=== PATIENT | male | born 1960 | race Caucasian/White ===

== ENCOUNTER → 2016-07-04 08:29 | Outpatient (CLI) | payer MEDICAID ==
--- NOTE | ~2016-07-04 | OP ---
PATIENT NAME: MINERVA BEE MEDICAL RECORD: [id number] :60 LOCATION:D.ER ADMISSION DATE: SURGEON: DON JOHNS MD DATE OF OPERATION: 07/04/2016 PROCEDURES: 1. PTCA stent of the LAD. 2. Left heart catheterization. 3. Selective coronary angiography. 4. Left ventriculogram. DESCRIPTION OF PROCEDURE: After informed consent was obtained and after detailed explanation of risks, benefits, as well as alternative therapies, the patient elected to proceed with angiogram and angioplasty. The right femoral area was prepped and draped in normal sterile fashion. The right femoral artery was cannulated via modified Seldinger technique with placement of 6-Croatian sheath. All catheters exchanged through this sheath. FINDINGS: Left ventriculogram was performed in the standard 30-degree WILKINS view reveals good cardiac wall motion throughout all segments. Overall ejection fraction 50%. SELECTIVE CORONARY ANGIOGRAPHY: 1. Left main showed no significant angiographic disease. 2. Left anterior descending has 95% stenosis in the proximal vessel, 80% stenosis times 2 in the mid vessel. 3. The left circumflex is a very large, dominant vessel, 80% in the mid vessel. 4. Right coronary is small, nondominant with diffuse disease throughout. PTCA STENT OF THE LAD: The stent used is 3.5 x 26 Resolute approximately 2.5 x 12 mm Resolute in the mid vessel times 2. The result was 0% residual stenosis. OVERALL IMPRESSION: Successful percutaneous transluminal coronary angioplasty stent of the left anterior descending going from 95% initial stenosis to 0% residual stenosis. PLAN: For PTCA stent of the left circumflex in the near future. TRANSINT:[id number] Voice Confirmation ID: [id number] DOCUMENT ID: [id number] DON JOHNS MD CC: [id number] DICTATION DATE: 07/04/16 1249 OB/GYN: 07/04/162013 [facility] [address] [place] [address]
--- NOTE | ~2016-07-04 | CN ---
PATIENT NAME:MINERVA BEE MEDICAL RECORD: [id number] : 60 LOCATION:[facility] ADMIT DATE: ACCOUNT: [id number] CONSULTING PHYSICIAN: DON JOHNS MD REFERRING PHYSICIAN: MIREYA CARDONA MD DATE OF CONSULTATION: 07/04/2016 DIAGNOSES: 1. Unstable angina. 2. Abnormal ECG. HISTORY OF PRESENT ILLNESS: This is a gentleman with no previous cardiac history, who has been having chest pain and gross fatigue and shortness of breath for 1 week. His EKG has deep T-wave inversions throughout the anterolateral leads. PHYSICAL EXAMINATION: GENERAL APPEARANCE: Well-nourished, well-developed, appears stated age. Level of distress, comfortable. PSYCHIATRIC: Mental status, alert, normal affect. Orientation, oriented to time, place and person. EYES: Lids and conjunctiva, noninjected. No discharge, no pallor. ENT: Lips, teeth, gums, normal dentition. Oropharynx, no cyanosis, no pallor. NECK: Carotid arteries, bilateral normal upstroke, no bruits, no thrills. JUGULAR VEINS: No jugular venous pressure or distention. CERVICAL LYMPH NODES: Nontender, nonenlarged. THYROID: Not enlarged. Nontender. No nodules. LUNGS: Respiratory effort, unlabored. CHEST: Normal curvature. No thoracic deformity. No chest wall tenderness. Percussion, resonant. Auscultation, clear. No wheezes, no rales, no rhonchi. CARDIOVASCULAR: Precordial exam, nondisplaced. No heaves or pericardial thrills. Rate and rhythm, regular. Heart sounds, normal S1, normal S2. No S3, no gallop, no rub. Systolic murmur, not heard. Diastolic murmur, not heard. EXTREMITIES: No cyanosis, no edema. Peripheral pulses, full and equal in all extremities, except as noted. No bruits appreciated. ABDOMEN: Soft, nondistended. Normal aorta. No bruit. Nontender. No masses. Liver, nontender, no hepatomegaly. Spleen, nontender, no splenomegaly. MUSCULOSKELETAL: No joint tenderness. No joint swelling. No erythema. NEUROLOGICAL: Normal gait, normal strength, normal tone. SKIN: Warm and dry. REVIEW OF SYSTEMS: The patient reports easy bruising but reports no swollen glands. The patient reports no fever, no night sweats, no significant weight gain, no significant weight loss. No significant exercise tolerance. The patient reports no dry eyes, no irritation, no vision change. Patient reports no difficulty hearing and no ear pain. Patient reports no frequent nose bleeds or nose and sinus problems. Patient reports on arm pain on exertion. No shortness of breath while lying down. No history of heart murmur. Patient reports no cough, no wheezing or coughing up blood. Patient reports no abdominal pain, no vomiting. Normal appetite. No diarrhea and not vomiting blood. No nausea and no constipation. Patient reports no incontinence. No difficulty urinating. No hematuria. No increased frequency. Patient reports no muscle aches. No weakness, no arthralgias, no back pain. No swelling of the extremities. Patient reports no abnormal mole, no jaundice, no rashes. Reports no loss of consciousness. No weakness and no numbness. No seizures, dizziness, CONSULT REPORT [id number] MINERVA BEE or headaches. The patient reports no depression, no sleep disturbance, feeling safe in a relationship and no alcohol abuse. Patient reports on fatigue. Reports no runny nose or sinus pressure. No itching, no hives, and no frequent sneezing. OVERALL IMPRESSION: Chest pain compatible with angina with a grossly abnormal ECG, most likely has hemodynamically significant coronary artery disease. We will proceed with coronary angiography. Further care depends upon findings of the angiography. TRANSINT:[id number] Voice Confirmation ID: [id number] DOCUMENT ID: [id number] DON JOHNS MD CC: [id number] DICTATION DATE: 07/04/16 1039 TOOLROOM CLERK: 07/04/16 1300 [facility] [address] [place] [address]
--- NOTE | ~2016-07-04 | HEMODYNAMI ---
PATIENT:MINERVA BEE MEDICAL RECORD: [id number] : 60 [id number] ADMISSION DATE: 07/04/16 Generatedon:07/04/201612:50 Patient name: MINERVA BEE Patient #: [id number] SSN: : 1960 Date of study: 07/04/2016 Page: Of Hemodynamic Procedure Report Patient Data Patient Demographics Procedure consent was obtained First Name: MINERVA Gender: Male Last Name: CRISTAL : 1960 [facility] Initial: JOE Age: 56 year(s) Patient #: [id number] Race: Unknown Additional ID: [id number] Contact details [address]: [address] [place] [address] State: [place] City: [place] Zip code: [address] Admission Admission Data Admission Date: 07/04/2016 Admission Time: 8:29 Procedure Procedure Types Cath Procedure Diagnostic Procedure LHC LHC w/Coronaries PCI Procedure Coronary Stent Initial Miscellaneous Procedures Moderate Sedation up to 15 minutes Procedure Description Procedure Date Procedure Date: 07/04/2016 Procedure Start Time: 12:24 Procedure End Time: 12:49 Procedure Staff Name Function Rene Graham MD Performing Physician Bar Wright RT Scrub Berta Lay RN Nurse Saul Medina RT Monitor Procedure Data Cath Procedure Fluoroscopy Diagnostic fluoroscopy Total fluoroscopy Time: 8.5 time: 8.5 min min Diagnostic fluoroscopy Total fluoroscopy dose: dose: 1156 mGy 1156 mGy Contrast Material Contrast Material Type Amount (ml) Isovue 300 190 Entry Location Entry Primary Successful Side Size Upsize Upsize Entry Closure Succes sful Closure Location (Fr) 1 (Fr) 2 (Fr) Remarks Device Remarks Femoral Right 5 Fr 6 Fr Exoseal artery Short Estimated blood loss: 10 ml Diagnostic catheters Device Type Used For End Catheter Placement Cordis 5Fr Pigtail Procedure Catheter (MP) Cordis 5Fr JL 4.0 Procedure Catheter (MP) Cordis 5Fr 3DRC Catheter Procedure (MP) Procedure Complications No complications Procedure Medications Medication Administration Route Dosage Oxygen NC 2 l/min Heparin Flush Bag added to field 2 bags (1000units/500ml NS) Lidocaine 2% added to field 20 Versed I.V. 1 mg Fentanyl I.V. 50 mcg Versed I.V. 1 mg Fentanyl I.V. 50 mcg Versed I.V. 1 mg Fentanyl I.V. 50 mcg Heparin Bolus I.V. 4000 units Integrilin (Bolus I.V. 8.5 ml 2mg/ml) Versed I.V. 1 mg Fentanyl I.V. 50 mcg Hemodynamics Rest Heart Rate: 86 (bpm) Snapshots Pre Cath Intra NCS Post Cath Vital Signs Time Heart Resp SPO2 etCO2 [id number] NIBP (mmHg) Rhythm Pain Sedatio n Rate (ipm) (%) (mmHg) (mmHg) Status Level (bpm) 11:46:51 86 15 97 0 0 147/105(134) NSR 0 (11) 10(A) , No pain 11:51:09 91 14 98 0 0 154/102(131) NSR 0 (11) 10(A) , No pain 11:56:08 92 16 97 0 0 Measuring NSR 0 () 10(A) , No pain 11:56:24 91 16 99 0 0 146/86(105) NSR 0 (11) 10(A) , No pain 12:00:40 89 16 95 0 0 125/88(104) NSR 0 (11) 10(A) , No pain 12:04:52 86 17 95 0 0 122/83(97) NSR 0 (11) 10(A) , No pain 12:09:02 81 17 96 0 0 119/83(102) NSR 0 (11) 10(A) , No pain 12:13:12 81 16 95 0 0 119/87(112) NSR 0 (11) 10(A) , No pain 12:17:26 80 16 96 0 0 125/89(116) NSR 0 (11) 10(A) , No pain 12:21:40 84 16 96 0 0 124/86(94) NSR 0 (11) 10(A) , No pain 12:25:50 83 16 94 0 0 116/88(107) NSR 0 (11) 10(A) , No pain 12:30:49 86 16 96 0 0 Measuring NSR 0 (11) 10(A) , No pain 12:30:53 88 16 98 0 0 114/90(110) NSR 0 (11) 10(A) , No pain 12:35:52 88 10 96 0 0 Measuring NSR 0 (11) 10(A) , No pain 12:35:58 85 16 95 0 0 133/100(122) NSR 0 (11) 10(A) , No pain 12:40:10 86 16 96 0 0 154/109(137) NSR 0 (11) 10(A) , No pain 12:45:09 89 16 98 0 0 Measuring NSR 0 (11) 10(A) , No pain 12:45:25 90 15 96 0 0 154/115(150) NSR 0 (11) 10(A) , No pain 12:49:46 88 10 98 0 0 171/118(165) NSR 0 (11) 10(A) , No pain Medications Time Medication Route Dose Verified Delivered Reason Notes Effectiveness by by 11:38:52 Oxygen NC 2 Rene Berta Per physician l/min Santos Lay RN 11:39:01 Heparin Flush added 2 Rene Rene used for Bag to bags Santos Graham MD procedure (1000units/500ml field NS) 11:39:05 Lidocaine 2% added 20ml Rene Rene used for to vial Santos Graham MD procedure field 12:19:43 Versed I.V. 1 mg Rene Berta for sedation Santos Lay RN 12:19:52 Fentanyl I.V. 50 Rene Berta for sedation mcg Santos Lay RN 12:21:43 Versed I.V. 1 mg Rene Berta for sedation Santos Lay RN 12:21:55 Fentanyl I.V. 50 Rene Berta for sedation mcg Santos Lay RN 12:23:31 Versed I.V. 1 mg Rene Berta for sedation Santos Lay RN 12:23:37 Fentanyl I.V. 50 Rene Berta for sedation mcg Santos Lay RN 12:25:31 Versed I.V. 1 mg Rene Berta for sedation Santos Lay RN 12:25:40 Fentanyl I.V. 50 Rene Berta for sedation mcg Santos Lay RN 12:28:04 Heparin Bolus I.V. 4000 Rene Hampton for dose units Santos Lay RN anticoagulation verified with dr graham 12:31:28 Integrilin I.V. 8.5 Rene Hampton for wasted (Bolus 2mg/ml) ml Santos Lay RN antiplatelet 1.5ML therapy Procedure Log Time Note 11:05:39 Saul Medina RT(R) sent for patient. Start room use. 11:38:46 Time tracking: Regular hours 11:38:50 Plan of Care:Hemodynamics will remain stable., Cardiac rhythm will remain stable., Comfort level will be maintained., Respiratory function will remain adequate., Patient/ family verbilizes understanding of procedure., Procedure tolerated without complication., Recovers from procedure without complications.. 11:38:52 Oxygen 2 l/min NC was administered by Berta Lay RN; Per physician; 11:38:56 Patient received from ED to CCL 1 Alert and oriented. Tansferred to table in Supine position. 11:38:57 Warm blankets applied, and chalino hugger turned on for patient comfort. 11:38:57 Correct patient and procedure confirmed by team. 11:38:59 Signed procedure consent form obtained from patient. 11:39:00 ECG and BP/O2 sat monitors applied to patient. 11:39:01 Heparin Flush Bag (1000units/500ml NS) 2 bags added to field was administered by Rene Graham MD; used for procedure; 11:39:05 Lidocaine 2% 20ml vial added to field was administered by Rene Graham MD; used for procedure; 11:45:37 Vital chart was started 11:45:39 Baseline sample Acquired. 11:45:44 Rhythm: sinus rhythm 11:45:46 Full Disclosure recording started 11:45:52 H&P Date Dictated: 07/04/2016 Emergent; H&P N/A. 11:45:53 Pre-procedure instructions explained to patient. 11:45:54 Pre-op teaching completed and patient verbalized understanding. 11:45:55 Family in waiting room. 11:45:57 Patient NPO since Midnight. 11:46:01 Is the patient allergic to Iodine/contrast media? No. 11:46:06 Is patient on blood thinner?Yes 11:46:08 ACC The patient was administered the following blood thiners within the last 24 hours: ACCPlavix 11:46:14 Patient diabetic? No. 11:46:16 Previous problem with sedation/anesthesia? No ? 11:46:23 Snore? Yes 11:46:24 Sleep apnea? No 11:46:25 Deviated septum? No 11:46:25 Opens mouth fully? Yes 11:46:26 Sticks out tongue? Yes 11:46:28 Airway obstruction? No ? 11:46:31 Dentures? No ? 11:46:36 Pre procedure: right dorsailis pedis pulse 1+ Palpable, but thready & weak; easily obliterated 11:46:39 Modified Damián's test Ulnar > 7 seconds. 11:46:53 Failed Damián's 11:46:58 Patient pain scale 0/10 ?. 11:47:05 IV patent on arrival in right antecubital with 0.9% NaCl at [facility]. 11:47:08 Lab results completed and on chart. 11:47:17 Right groin area was prepped with chlora-prep and draped in sterile fashion 11:47:18 Alarms reviewed by R. N. 11:47:18 Sharps counted by scrub and verified by R.N. 12:19:39 --------ALL STOP TIME OUT------ 12:19:40 Final Timeout: patient, procedure, and site verified with staff and physician. All members of the team are in agreement. 12:19:42 Right groin site verified by team. 12:19:43 Versed 1 mg I.V. was administered by Berta Lay RN; for sedation; 12:19:47 Physical assessment completed. ASA score P 2 - A patient with mild systemic disease as per Rene Graham MD. 12:19:51 Sedation plan: IV Moderate Sedation Versed, Fentanyl 12:19:52 Fentanyl 50 mcg I.V. was administered by Berta Lay RN; for sedation; 12:20:17 Use device set Femoral Dx 12:20:20 Tegaderm 4 x 4 opened to sterile field. 12:20:21 Acist Hand Control opened to sterile field. 12:20:21 Acist Manifold opened to sterile field. 12:20:23 Acist Syringe opened to sterile field. 12:20:23 Bag Decanter opened to sterile field. 12:20:24 Medline Cath Pack opened to sterile field. 12::24 Terumo 5Fr [place] Sheath opened to sterile field. 12::24 St Yunior 260cm J .035 wire opened to sterile field. 12::26 Diagnostic Infinity 5Fr Multipack catheter opened to sterile field. 12::43 Versed 1 mg I.V. was administered by Berta Lay RN; for sedation; 12::55 Fentanyl 50 mcg I.V. was administered by Berta Lay RN; for sedation; 12:: Versed 1 mg I.V. was administered by Berta Lay RN; for sedation; 12::34 Procedure started. 12::37 Fentanyl 50 mcg I.V. was administered by Berta Lay RN; for sedation; 12:: Local anesthetic to right femoral artery with Lidocaine 2% by Rene Graham MD.INITIAL ACCESS ONLY 12::31 A 5 Fr sheath was inserted into the Right Femoral artery 12::39 A Cordis 5Fr Pigtail Catheter (MP) was advanced over the wire and used for Procedure. 12:24:53 LV angiography performed. 12:24:54 LV gram done using WILKINS 12:25:00 EF : 60 % 12:25:05 Injector settings: Ml/sec: 10, Volume: 20, 12:25:07 Catheter removed. 12:25:14 A Cordis 5Fr JL 4.0 Catheter (MP) was advanced over the wire and used for Procedure. 12::31 Versed 1 mg I.V. was administered by Berta Lay RN; for sedation; 12::40 Fentanyl 50 mcg I.V. was administered by Berta Lay RN; for sedation; 12:25:48 Terumo 6Fr [place] Sheath opened to sterile field. 12:25:48 Fonseca Whisper J 300cm 0.014 guide wire opened to sterile field. 12:25:48 Beam. BasixCompak Inflation Kit opened to sterile field. 12:26:09 LCA angiography performed. 12:26:10 Catheter removed. 12:26:38 A Cordis 5Fr 3DRC Catheter (MP) was advanced over the wire and used for Procedure. 12:27:04 RCA angiography performed. 12:27:05 Catheter removed. 12::31 Sheath upsized to a 6 Fr Short. 12:27:39 Cordis 6FR XBLAD 4.0 guide catheter opened to sterile field. 12::46 6 Fr XBLAD 4 guide catheter was inserted over the wire 12:28:04 Heparin Bolus 4000 units I.V. was administered by Berta Lay RN; for anticoagulation; dose verified with dr graham 12:29:40 Whisper wire advanced. 12:30:33 Wire advanced across lesion. 12:: Inflation number: 1 A [place] Sci [place] 3.0 X 20 balloon was prepped and advanced across the Prox LAD, then inflated to 13 ORLIN for 0:10 (min:sec). 12::28 Integrilin (Bolus 2mg/ml) 8.5 ml I.V. was administered by Berta Lay RN; for antiplatelet therapy; wasted 1.5ML 12::56 Multiple inflations made at 13 Atms. 12:32:15 Inflation number: 2 The [place] Sci Scotland 3.0 X 20 balloon was reinflated across the Prox LAD, to 17 ORLIN for 0:10 (min:sec). 12:35:48 Balloon removed over the wire. 12:36:01 Inflation Number: 1 A Medtronic Resolute 2.5 X 12 stent was prepped and advanced across the Dist LAD1. The stent was deployed at 11 ORLIN for 0:10 (min:sec). 12:36:32 Stent catheter was removed intact over wire. 12:37:42 Inflation Number: 1 A Medtronic Resolute 2.5 X 12 stent was prepped and advanced across the Dist LAD. The stent was deployed at 11 ORLIN for 0:10 (min:sec). 12:38:00 Stent catheter was removed intact over wire. 12:40:02 Inflation Number: 3 A Medtronic Resolute 3.5 X 30 stent was prepped and advanced across the Prox LAD. The stent was deployed at 15 ORLIN for 0:10 (min:sec). 12:41:55 Stent catheter was removed intact over wire. 12:41:56 Wire removed. 12:41:58 Guide catheter removed. 12:42:29 Sheath removed intact; hemostasis achieved with Exoseal to the Right Femoral artery. 12:42:57 Cordis 6Fr Exoseal opened to sterile field. 12:42:59 Procedure ended.(Physican Out) 12:47:07 Fluoroscopy time 08.50 minutes. 12:47:11 Fluoroscopy dose: 1156 mGy 12:47:11 Flurop Dose total: 1156 12:47:16 Contrast amount:Isovue 300 190ml. 12:47:18 Sharps counted by scrub and verified by R.N. 12:47:24 Insertion/operative site no bleeding no hematoma. 12:47:28 Post-op/insertion site Right Femoral artery dressed using a 4 x 4 and Tegaderm. 12:47:29 Post Procedure Pulses reassessed and unchanged 12:47:36 Post procedure rhythm: unchanged. 12:47:39 Estimated blood loss: 10 ml 12:47:41 Post procedure instruction explained to patient.Patient verbalizes understanding. 12:47:42 Patient needs reinforcement of post procedure teaching. 12:47:55 Procedure type changed to Cath procedure, Diagnostic procedure, LHC, LHC w/Coronaries, PCI procedure, Coronary Stent Initial, Miscellaneous Procedures, Moderate Sedation up to 15 minutes 12:48:02 Procedure Complication : No complications 12:49:04 Procedure and supply charges have been captured, reviewed, submitted and are correct. 12:49:34 Vital chart was stopped 12:49:36 See physician's report for complete and final results. 12:49:37 Report given to Pre/Post Procedure Room. 12:49:40 Patient transfered to Pre/Post Procedure Room with Stretcher. 12:49:42 Procedure ended. 12:49:42 Full Disclosure recording stopped 12:49:54 End room use (Document Last) Intervention Summary Intervention Notes Time ActionType Lesion and Equipment Action# Pressure Duration Attributes Used 12:31:27 Inflate Prox LAD [place] 1 13 00:10 balloon Sci [place] 3.0 X 20 balloon 12:32:15 Reinflate Prox LAD [place] 2 17 00:10 balloon Sci [place] 3.0 X 20 balloon 12:36:01 Place stent Dist LAD1 Medtronic 1 11 00:10 Resolute 2.5 X 12 stent 12:37:42 Place stent Dist LAD Medtronic 1 11 00:10 Resolute 2.5 X 12 stent 12:40:02 Place stent Prox LAD Medtronic 3 15 00:10 Resolute 3.5 X 30 stent Device Usage Item Name Manufacture Quantity Catalog Number Hospital Part Current Mini mal Lot# / Charge Number Stock Stock Serial# Code Tegaderm 4 3M 1 [id number] [id number] 216324 5 x 4 Acist Hand Acist 1 69360 773583 887084 276091 5 Control Medical Systems Inc Acist Acist 1 10886 263308 152369 688380 5 Manifold Medical Systems Inc Acist Acist 1 31256 777101 916549 438456 20 Syringe Medical Systems Inc Bag Microtek 1 2002S 171637 29699 823195 5 Decanter Medical Inc. Medline Cardinal 1 [id number] 296596 41915 447931 5 Cath Pack Health Terumo 5Fr Terumo 1 [id number] 430269 438285 349542 [address] St Yunior 1 940819 421827 508631 634499 30 260cm J .035 wire Diagnostic Cardinal 1 [id number] 745164 53196 610192 30 Infinity Health 5Fr Multipack catheter Cordis 5Fr Cardinal 1 [id number] 5 Pigtail Health Catheter (MP) Cordis 5Fr Cardinal 1 102797 5 JL 4.0 Health Catheter (MP) Terumo 6Fr Terumo 1 [id number] 572970 835668 899750 40 [place] Sheath Fonseca Fonseca 1 [id number] 012306 050355 782893 5 Whisper J Vascular 300cm 0.014 guide wire Merit Merit 1 [id number] 464680 729728 492679 15 [facility] Medical Inflation Kit Cordis 5Fr Cardinal 1 921556 5 3DRC Health Catheter (MP) Cordis 6FR Cardinal 1 [id number] 418528 703932 478475 3 XBLAD 4.0 Health guide catheter [place] Sci [place] 1 [id number] 102354 465197 835579 1 [employer]str[employer]ias [employer] 3.0 X 20 balloon Medtronic Medtronic 2 [id number] 799904 8 [id number] Resolute [id number] 2.5 X 12 stent Medtronic Medtronic 1 [id number] 842103 966816 6 [id number] Resolute 3.5 X 30 stentt Cordis 6Fr Cardinal 1 EX600 597702 940732 278693 10 [facility] Signature Audit [place] Stage Time Signature Unsigned Intra-Procedure 07/04/2016 Saul Medina 12:50:20 PM RT(R) Signatures Monitor : Saul Medina RT Signature : Date : Time : [place] [id number] [place] [address]
[~2016-07-04 08:29] MED LIST: BAYER CHEWABLE81 MG PO; PLAVIX75 MG PO; PRAVACHOL40 MG PO
[2016-07-04 09:56] LABS: BASOPHILS 0.1 % (0-2); EOSINOPHILS 0.8 % (0-7); HEMATOCRIT 48.6 % (42.0-54.0); HEMOGLOBIN 16.6 g/dL (13.5-17.5); IMMATURE GRANULOCYTES 0.1 % (0-5); LYMPHOCYTES 14.2 % (15-50); MCH 31.9 pg (26.0-34.0); MCHC 34.2 g/dL (31.0-37.0); MCV 93.5 fL (80.0-100.0); MEAN PLATELET VOLUME 10.1 fL (7.4-10.4); MONOCYTES 5.2 % (2-11); NEUTROPHILS 79.6 % (40-80); PLATELET COUNT 339 10x3/uL (130-400); WBC 13.6 10x3/uL (4.8-10.8)
[2016-07-04 10:09] LABS: ALBUMIN 4.1 g/dL (3.4-5.0); ALKALINE PHOSPHATASE 89 U/L (46-116); ALT (SGPT) 26 U/L (10-68); BILIRUBIN - TOTAL 0.27 mg/dL (0.2-1.3); CALC OSMOLALITY 276 mosm/kg (275-300); CALCIUM 9.5 mg/dL (8.5-10.1); CARBON DIOXIDE 28.5 mmol/L (21.0-32.0); CHLORIDE - SERUM 101 mmol/L (98-107); CREATININE - SERUM 1.4 mg/dL (0.6-1.3); GLUCOSE 132 mg/dL (74-106); POTASSIUM - SERUM 4.2 mmol/L (3.5-5.1); PROTEIN - SERUM 8.9 g/dL (6.4-8.2); SODIUM 136 mmol/L (136-145); UREA NITROGEN 22 mg/dL (7-18); eGFR NON AFRICAN AMERICAN 56 mL/min (90-120)
[2016-07-04 10:12] LABS: CREATINE KINASE 153 UL (21-232); TROPONIN-I < 0.017 ng/mL (0.000-0.060)
--- NOTE | 2016-07-04 19:06 | NUR ---
1315-RESTING, SISTER AT SIDE, RIGHT GROIN CDI, NO HEMATOMA OR BLEEDING. 1345-RIGHT GROIN- SMALL HEMATOMA NOTED-MANUAL PRESSURE APPLIED FOR 4 MIN- HEMATOMA BETTER, DENIES NEEDS
--- NOTE | 2016-07-04 19:12 | NUR ---
1700-IV D'C WITH CATH TIP INTACT, WRITTEN AND VERBAL INSTRUCTIONS GIVEN TO PT AND FAMILY, UP TO REST ROOM -VOID, RIGHT GROIN CDI
== END | disposition home or self-care (01) ==
LOC: D.ER 08:29 → D.CATH 08:29 → EDBD 08:29 → EDSTATUS 12:30
PROVIDERS: Emergency Medicine
DX: R07.9 Chest pain, unspecified (principal); R20.9 Unspecified disturbances of skin sensation

== ENCOUNTER 2016-07-05 13:11 | Inpatient (IN) | payer MEDICAID ==
[~2016-07-05] VITALS: Ht 172.7 cm; Wt 91.4 kg
[~2016-07-05 13:11] MED LIST changes: -BAYER CHEWABLE81 MG PO
[2016-07-05 13:48] LABS: BASOPHILS 0.2 % (0-2); EOSINOPHILS 0.7 % (0-7); HEMOGLOBIN 16.4 g/dL (13.5-17.5); IMMATURE GRANULOCYTES 0.2 % (0-5); LYMPHOCYTES 27.8 % (15-50); MCHC 34.2 g/dL (31.0-37.0); MCV 93.6 fL (80.0-100.0); MEAN PLATELET VOLUME 10.1 fL (7.4-10.4); MONOCYTES 7.4 % (2-11); NEUTROPHILS 63.7 % (40-80); PLATELET COUNT 333 10x3/uL (130-400); RBC 5.13 10x6/uL (4.20-6.10); RDW 12.1 % (11.5-14.5)
[2016-07-05 13:55] LABS: WBC 9.6 10x3/uL (4.8-10.8)
[2016-07-05 14:41] LABS: APTT 26.7 SECONDS (22.8-39.4); INR 0.94 (0.85-1.17); PROTIME 12.4 SECONDS (11.6-15.0)
[2016-07-05 14:50] LABS: ALBUMIN 3.9 g/dL (3.4-5.0); ANION GAP 10.4 mmol/L (8-16); BILIRUBIN - TOTAL 0.28 mg/dL (0.2-1.3); CALCIUM 9.3 mg/dL (8.5-10.1); CREATININE - SERUM 1.2 mg/dL (0.6-1.3); POTASSIUM - SERUM 4.4 mmol/L (3.5-5.1); PROTEIN - SERUM 8.1 g/dL (6.4-8.2)
--- NOTE | 2016-07-05 16:52 | NUR ---
PT RECEIVED TO ROOM 210 VIA STRETCHER, PT ORIENTED TO ROOM AND CALL LIGHT, SCD'S PUT ON BILAT. WILL ASSESS PT AND START PLAN OF CARE. ADMINISTERED PROTONIX ORDERED. RT SIDE WEAKNESS/FLACCID NOTED, DROPPING TO RT SIDE OF FACE. PT DENIES ANY NEEDS AT THIS TIME. CALL LIGHT IN REACH, FAMILY AT BEDSIDE, NAD NOTED, WILL CONTINUE TO MONITOR.
[2016-07-05] MEDS ORDERED: BAYER CHEWABLE81 MG PO (16:56)
--- NOTE | 2016-07-05 17:20 | NUR ---
PT TAKEN OFF THE UNIT FOR MRI, NAD NOTED.
[2016-07-05 17:31] VITALS: BP 139/92; BMI 30.4
--- NOTE | 2016-07-05 18:04 | NUR ---
PT TRANSFERED BACK TO ROOM, NAD NOTED, FAMILY AT BEDSIDE.
--- NOTE | 2016-07-05 19:40 | NUR ---
ASSESSMENT COMPLETE, PT A&O. SPEECH SLIGHTLY SLURRED. RIGHT ARM AND LEG SIGNIFICANTLY WEAKER THAN THE LEFT SIDE. IV TO LEFT FOREARM SL, SITE CLEAN AND DRY. RIGHT GROIN DRSG C/D/I FROM HEART CATH DONE YESTERDAY. FAMILY MEMBERS ASKING SEVERAL QUESTIONS AND ALSO ASKING IF PTS PCP CAN BE CHANGED FROM DR TAN TO DR LOVETT, INFORMED THEM THAT CYBER INTEL PLANNER WAS GOING TO BE COMING UP AND SPEAKING WITH THEM IN REGARDS TO SWITHCHING. NO OTHER NEEDS VOICED AT THIS TIME, WILL CONT TO MONITOR.
[2016-07-05 20:00] VITALS: BP 125/92
--- NOTE | 2016-07-05 20:18 | NUR ---
HOUSE SUPP. AT BED SIDE TO TALK WITH FAMILY.
[2016-07-06] VITALS: BP 138/97
--- NOTE | 2016-07-06 03:48 | NUR ---
RESTING ON RIGHT SIDE, RESPERATIONS EVEN, NO S/S DISTRESS NOTED.
[2016-07-06 04:00] VITALS: BP 125/94
[2016-07-06 04:43] LABS: BASOPHILS 0.2 % (0-2); EOSINOPHILS 2.2 % (0-7); HEMATOCRIT 49.6 % (42.0-54.0); HEMOGLOBIN 16.8 g/dL (13.5-17.5); IMMATURE GRANULOCYTES 0.2 % (0-5); LYMPHOCYTES 31.4 % (15-50); MCH 31.9 pg (26.0-34.0); MCHC 33.9 g/dL (31.0-37.0); MCV 94.1 fL (80.0-100.0); MONOCYTES 8.9 % (2-11); NEUTROPHILS 57.1 % (40-80); PLATELET COUNT 346 10x3/uL (130-400); RBC 5.27 10x6/uL (4.20-6.10); RDW 12.2 % (11.5-14.5); WBC 10.4 10x3/uL (4.8-10.8)
[2016-07-06 05:08] LABS: ALBUMIN 3.9 g/dL (3.4-5.0); ANION GAP 11.7 mmol/L (8-16); BILIRUBIN - TOTAL 0.38 mg/dL (0.2-1.3); CALCIUM 9.1 mg/dL (8.5-10.1); CARBON DIOXIDE 29.2 mmol/L (21.0-32.0); CHOL - HDL RATIO 6.2 ratio (2.3-4.9); CREATININE - SERUM 1.2 mg/dL (0.6-1.3); LDL-HDL RATIO 4.6 ratio (1.5-3.5); POTASSIUM - SERUM 3.9 mmol/L (3.5-5.1); PROTEIN - SERUM 8.5 g/dL (6.4-8.2)
--- NOTE | 2016-07-06 05:35 | NUR ---
WILL CONTINUE WITH PLAN OF CARE, CALL LIGHT IN REACH.
--- NOTE | 2016-07-06 07:34 | NUR ---
PT IS RESTING IN BED WITH EYES OPEN. ALERT AND ORIENTED X 3. DENIES ACUTE DISCOMFORT AT THIS TIME. AWAITING CTA CAROTID THIS AM. 20G SALINE LOCK NOTED TO LFA. NO REDNESS OR EDEMA NOTED AT THE INSERTION SITE. TELEMETRY IS INTACT. SR'S ARE UP X 2 IN BED. CALL LIGHT AND BEDSIDE TABLE ARE WITHIN EASY REACH.
[2016-07-06 08:00] VITALS: BP 152/95
--- NOTE | 2016-07-06 08:27 | NUR ---
PT DEPARTING UNIT FOR PROCEDURE AT THIS TIME.
--- NOTE | 2016-07-06 09:00 | NUR ---
PT RETURNED FROM PROCEDURE. BREAKFAST DELIVERED TO ROOM.
--- NOTE | 2016-07-06 09:29 | NUR ---
Rehab Note- Acute Rehab Prescreen order received. The patient has Medicaid and does not have Acute Rehab benefits. Thank you for this referral! Cinda Park RN Clinical Liaison, [facility] Rehab/[facility]
[2016-07-06 09:37] VITALS: Ht 172.7 cm; Wt 91.4 kg
[2016-07-06 12:00] VITALS: BP 144/94
--- NOTE | 2016-07-06 12:01 | NUR ---
PT RESTING IN BED WITH EYES OPEN. NO NEEDS VOICED.
--- NOTE | 2016-07-06 14:47 | NUR ---
DR BONILLA PAGED TO ASK ABOUT RESTARTING ASA AND PLAVIX PER DR TAN.
--- NOTE | 2016-07-06 14:58 | NUR ---
PT RESTING IN BED WITH EYES OPEN. NO ACUTE DISTRESS NOTED.
[2016-07-06 16:01] VITALS: BP 145/92
--- NOTE | 2016-07-06 16:43 | NUR ---
Patient Name: MINERVA BEE Admission Status: ER Accout number: [id number] Admission Date: 07-05-2016 : 1960 Admission Diagnosis:CEREBRAL INFARCTION, UNSPECIFIED Attending: LARA Current LOS: 1 Anticipated DC Date: Planned Disposition: Home with Home Health Primary Insurance: MEDICAID [place] PLANNED EXTERNAL PROVIDER: WAITING ON PT'S CHOICE OF PROVIDER Discharge Planning Comments: * Is the patient Alert and Oriented? Yes 0 * How many steps to enter\exit or inside your home? 2 0 * PCP DR. COOMBS 0 * Pharmacy [facility] 0 * Preadmission Environment Home with Family 0 * ADLs Independent 0 * Equipment None 0 * Other Equipment NO MEDICAL EQUIPMENT PROVIDER PREFERENCE 0 * List name and contact numbers for known caregivers / representatives who currently or will assist patient after discharge: YVAN BAZAN, SISTER, 0 * Community resources currently utilized None 0 * Please name any agencies selected above. NONE 0 * Additional services required to return to the preadmission environment? Yes * Can the patient safely return to the preadmission environment? Yes 0 * Has this patient been hospitalized within the prior 30 days at any hospital? No 0 CM RECEIVED ORDER FOR INPATIENT REHAB PRESCREENING. CM MET WITH PT IN ROOM TO DISCUSS DISCHARGE PLANNING AND NEEDS. PT REPORTS LIVING AT HOME INDEPENDENTLY WITH HIS SISTER. PT HAS NO MEDICAL EQUIPMENT AND NO OUTSIDE SERVICES ASSISTING IN THE HOME. CM DISCUSSED AVAILABILITY OF HOME HEALTH, REHAB SERVICES AND MEDICAL EQUIPMENT. PT WOULD LIKE REHAB IF INSURANCE COVERS IT. PT HAS MEDICAID THAT WILL NOT PAY FOR INPATIENT OR USP REHAB; MEDICAID WILL COVER HOME HEALTH WITH THERAPY. PT WOULD LIKE HOME HEALTH IF THE DOCTOR WILL ORDER IT; REPORTS HIS PRIMARY DOCTOR TO BE DR. COOMBS. PT REPORTS HIS SISTER WILL PICK HIM UP FOR DISCHARGE HOME. CM LEFT PT WITH CHOICE LETTER FOR HOME HEALTH AGENCY AND CM CONTACT INFORMATION. CM TO ARRANGE HOME HEALTH WITH DOCTORS ORDER AND PT'S CHOICE OF PROVIDER. CM TO FOLLOW AND ASSIST NEEDED. Rubber Off: Bismark Davila
--- NOTE | 2016-07-06 17:07 | NUR ---
PT RESTING IN BED VISITING WITH FAMILY. NO NEEDS VOICED.
--- NOTE | 2016-07-06 18:40 | NUR ---
OT NOTE: PT COMPLETED RUE PROM TO FACILITATE RETURN OF FUNCTION. PT COMPLETED RUE POSITIONING TO MAINTAIN JOINT INTEGRITY. PT COMPLETED BED MOB WITH JENI Rajan. PT COMPLETED SIMPLE GROOMING TASK WITH SET UP. THANK YOU, ANGELA CARPENTER/Janki
--- NOTE | 2016-07-06 19:45 | NUR ---
PT RECEIVED LYING IN BED AAOX3 WITH FAMILY AT BEDSIDE. S/L NOTED TO LEFT F/A. DRESSING CDI. HEART RRR. LUNG SOUNDS CLEAR BILATERALLY. BOWEL SOUNDS ACTIVE X4 QUADRENTS. ABDOMEN SOFT NON-TENDER. STIFFNESS/WEAKNESS NOTED TO RUE AND RLE. PT FAMILY AT BEDSIDE AT THIS TIME. DENIES NEEDS. BED LOW. PHONE AND CALL LIGHT IN REACH. SRX2.
[2016-07-06 21:42] VITALS: BP 147/100
--- NOTE | 2016-07-06 21:58 | NUR ---
PT RESTING QUIETLY AT THIS TIME WITH EYES CLOSED. AROUSED EASILY. DENIES NEEDS AT THIS TIME. BED LOW. PHONE AND CALL LIGHT IN REACH. SRX2.
--- NOTE | 2016-07-06 23:37 | NUR ---
PT RESTING QUIETLY AT THIS TIME WITH EYES CLOSED. RESPIRATIONS EVEN, NON-LABORED. NO ACUTE DISTRESS NOTED AT THIS TIME. BED LOW. PHONE AND CALL LIGHT IN REACH. SRX2.
[2016-07-07 00:56] VITALS: BP 124/88
--- NOTE | 2016-07-07 03:02 | NUR ---
PT RESTING QUIETLY AT THIS TIME WITH EYES CLOSED. AROUSED EASILY. DENIES NEEDS AT THIS TIME. BED LOW. PHONE AND CALL LIGHT IN REACH. SRX2.
[2016-07-07 04:00] VITALS: BP 150/94
[2016-07-07 05:40] LABS: BASOPHILS 0.4 % (0-2); EOSINOPHILS 1.8 % (0-7); HEMATOCRIT 48.2 % (42.0-54.0); HEMOGLOBIN 16.2 g/dL (13.5-17.5); IMMATURE GRANULOCYTES 0.4 % (0-5); MCH 31.5 pg (26.0-34.0); MCHC 33.6 g/dL (31.0-37.0); MCV 93.8 fL (80.0-100.0); MEAN PLATELET VOLUME 10.3 fL (7.4-10.4); MONOCYTES 8.7 % (2-11); NEUTROPHILS 68.7 % (40-80); PLATELET COUNT 333 10x3/uL (130-400); RBC 5.14 10x6/uL (4.20-6.10); RDW 12.2 % (11.5-14.5); WBC 12.9 10x3/uL (4.8-10.8)
[2016-07-07 05:57] LABS: ALBUMIN 3.7 g/dL (3.4-5.0); ANION GAP 11.4 mmol/L (8-16); BILIRUBIN - TOTAL 0.45 mg/dL (0.2-1.3); CARBON DIOXIDE 29.5 mmol/L (21.0-32.0); CREATININE - SERUM 1.1 mg/dL (0.6-1.3); POTASSIUM - SERUM 3.9 mmol/L (3.5-5.1); PROTEIN - SERUM 8.4 g/dL (6.4-8.2)
--- NOTE | 2016-07-07 08:02 | NUR ---
AM ROUNDS - PT IS AWAKE AND IN THE BED. PT C/O NOT BEING ABLE TO MOVE HIS RIGHT ARM AND RIGHT LEG. PT STATES THAT THIS STARTED 3-4 DAYS AGO AND GETTING WORSE. POSITIVE PEDAL PULSES. PT ON RA, LEFT FA, SL. MONITOR SHOWINGSR, HR 97. PT HAS NO NEEDS AT THIS TIME. WILL CONTINUE TO MONITOR.
--- NOTE | 2016-07-07 08:42 | NUR ---
TRIED TO CALL ARTURO THE NURSE FROM YESTERDAY TO SEE IF HE TALKED TO DR BONILLA R/T GIVING THE PLAVIX AND ASA THERE IS NO NOTE IN THE SYSTEM THAT SHOWS HE DID. NO ANSWER, WILL TRY AGAIN IN A BIT.
[2016-07-07 09:30] VITALS: BP 172/85
--- NOTE | 2016-07-07 09:49 | NUR ---
843-TRIED TO CALL ARTURO FROM YESTERDAY REGARDING THE ASA AND PLAVIX, NO ANSWER. 899-TRIED AGAIN TO CALL ARTURO, NO ANSWER. 949-DR MAZARIEGOS HERE AND SPOKE TO HIM REGARDING THE ASA AND PLAVIX, ORDER TO BE GIVEN.
[2016-07-07 16:11] VITALS: BP 139/91
[2016-07-07 17:43] VITALS: BP 150/102
--- NOTE | 2016-07-07 17:59 | NUR ---
DENIES ANY NEEDS, WATCHING ANA MONT[place] WITH FAMILY MEMBERS. HAS BEEN UP IN WHEELCHAIR X 1 TODAY TO GET SOME FRESH AIR. WILL CONTINUE TO MONITOR.
--- NOTE | 2016-07-07 19:40 | NUR ---
RECEIVED REPORT, PT SITTING ON SIDE OF BED, FAMILY AT BED SIDE, PLACED BEDSIDE COMMODE IN ROOM, CALL LIGHT IN REACH, WILL CONTINUE CARE OF PLAN
[2016-07-07 20:00] VITALS: BP 144/90
[2016-07-08] VITALS: BP 150/96
--- NOTE | 2016-07-08 00:18 | NUR ---
TV TECHNICIAN AT BED SIDE TO OBTAIN VITALS. WILL CONT PLAN OF CARE.
[2016-07-08 04:00] VITALS: BP 142/94
[2016-07-08 06:21] LABS: BASOPHILS 0.4 % (0-2); EOSINOPHILS 2.9 % (0-7); HEMATOCRIT 47.9 % (42.0-54.0); HEMOGLOBIN 15.9 g/dL (13.5-17.5); IMMATURE GRANULOCYTES 0.3 % (0-5); MCH 31.6 pg (26.0-34.0); MCHC 33.2 g/dL (31.0-37.0); MCV 95.2 fL (80.0-100.0); MEAN PLATELET VOLUME 10.2 fL (7.4-10.4); MONOCYTES 8.4 % (2-11); PLATELET COUNT 308 10x3/uL (130-400); RBC 5.03 10x6/uL (4.20-6.10); RDW 12.3 % (11.5-14.5)
[2016-07-08 06:37] LABS: ALBUMIN 3.7 g/dL (3.4-5.0); ANION GAP 8.8 mmol/L (8-16); BILIRUBIN - TOTAL 0.49 mg/dL (0.2-1.3); CALCIUM 9.1 mg/dL (8.5-10.1); CARBON DIOXIDE 31.5 mmol/L (21.0-32.0); CREATININE - SERUM 1.2 mg/dL (0.6-1.3); POTASSIUM - SERUM 4.3 mmol/L (3.5-5.1); PROTEIN - SERUM 8.2 g/dL (6.4-8.2)
--- NOTE | 2016-07-08 08:02 | NUR ---
0738-AM ROUNDING DONE. SPEECH IS MORE CLEAR THIS AM (EASIER TO UNDERSTAND THAN YESRTERDAY). PATIENT EVEN REPORTS THAT HIS SPEECH IS CLEARER. ON HEART MONITOR SHOWING SR, HR 85. SALINE LOCK SEEN TO LEFT FA. STILL WITH FLACCID TO RIGHT SIDE. WILL PERFORM NEURO CHECKS PAST HIM EATING BREAKFAST. WILL MONITOR.
[2016-07-08 08:15] VITALS: BP 141/88
[2016-07-08 12:08] VITALS: BP 113/89
--- NOTE | 2016-07-08 14:26 | NUR ---
DR TAN HERE TO SEE PATIENT AND DISCUSS WHAT NEEDS HE WILL NEED UPON DISCHARGE IF HE DOES NOT REGAIN USE OF HIS RIGHT ARM AND LEG. YVAN (NIECE) IN ROOM WITH SIGNIFICANT OTHER.
[2016-07-08 15:49] VITALS: BP 124/95
--- NOTE | 2016-07-08 17:48 | NUR ---
DENIES NEEDS AT PRESENT TIME, JUST FINISHED EATING TACO VENEGAS THAT SIGNIFIGANT OTHER BROUGHT HIM. WILL CONTINUE TO MONITOR. INSTRUCTED IN NEED TO USE CALL LIGHT FOR ALL NEEDS, REPLIES THAT HE UNDERSTANDS THIS.
--- NOTE | 2016-07-08 19:55 | NUR ---
PT AWAKE, ALERT, ORIENTED, STILL DEMONSTRATES RIGHT SIDED FLACCIDITY. FAMILY AT BEDSIDE. PT DENIES PAIN, HOWEVER B/P WAS ELEVATED UPON WIRELESS NETWORK ENGINEER ROUNDS. WILL RECHECK AND CALL FOR PRN MEDICATION. CONTINUE TO MONITOR CLOSELY. BED LOW, CALL LIGHT IN REACH, SIDE RAILS X 2, HOB 35 DEGREES.
[2016-07-08 20:00] VITALS: BP 128/84
[2016-07-09] VITALS: BP 138/102
--- NOTE | 2016-07-09 01:42 | NUR ---
PT LYING IN BED ON HIS BACK, EYES CLOSED, RESPIRATIONS EVEN AND UNLABORED. PT EASILY ROUSABLE TO VERBAL STIMULI. B/P HAS BEEN TRANSIENTLY ELEVATED SINCE THE BEGINNING OF SHIFT, HOWEVER, WHEN RECHECKED 10-15 MINUTES LATER HAS IMPROVED WNL. CURRENTLY IT IS 138/102. PT DOES NOT HAVE ANY PRN MEDICATIONS FOR B/P AT THIS TIME. ELECTRIC HOIST OPERATOR, AMANDA TRAN RN, ASSISTING WITH COLLEGE TUTOR NEEDS FOR ER PHYSICIAN ADVISED TO WATCH CLOSELY. NO NEW ORDERS AT THIS TIME.
--- NOTE | 2016-07-09 03:37 | NUR ---
PT LYING IN BED ON BACK, EYES CLOSED, RESPIRATIONS EVEN AND UNLABORED. CONTINUE TO MONITOR CLOSELY. BED LOW, CALL LIGHT IN REACH, SIDE RAILS X 2, HOB 15 DEGREES.
[2016-07-09 04:00] VITALS: BP 156/93
[2016-07-09 05:32] LABS: BASOPHILS 0.2 % (0-2); EOSINOPHILS 4.1 % (0-7); HEMATOCRIT 47.3 % (42.0-54.0); HEMOGLOBIN 15.7 g/dL (13.5-17.5); IMMATURE GRANULOCYTES 0.3 % (0-5); MCH 31.5 pg (26.0-34.0); MCHC 33.2 g/dL (31.0-37.0); MEAN PLATELET VOLUME 10.4 fL (7.4-10.4); MONOCYTES 9.2 % (2-11); NEUTROPHILS 57.2 % (40-80); PLATELET COUNT 297 10x3/uL (130-400); RBC 4.98 10x6/uL (4.20-6.10); RDW 12.4 % (11.5-14.5); WBC 9.3 10x3/uL (4.8-10.8)
[2016-07-09 05:55] LABS: ALBUMIN 3.5 g/dL (3.4-5.0); ANION GAP 11.5 mmol/L (8-16); BILIRUBIN - TOTAL 0.33 mg/dL (0.2-1.3); CALCIUM 9.1 mg/dL (8.5-10.1); CARBON DIOXIDE 30.6 mmol/L (21.0-32.0); CREATININE - SERUM 1.2 mg/dL (0.6-1.3); POTASSIUM - SERUM 4.1 mmol/L (3.5-5.1)
[2016-07-09 07:55] VITALS: BP 145/103
--- NOTE | 2016-07-09 07:57 | NUR ---
AM ROUNDING- RECEIVED REPORT FROM STONE POLISHER MACHINE NURSE NURY ESPOSITO. PT IS CURRENTLY LAYING IN BED ON BACK WITH EYES OPEN RESTING. ON MONITOR SHOWING SR, HR 81. ON ROOM AIR. IV SEEN TO LEFT FOREARM THAT IS CURRENTLY SALINE LOCKED. ON EP, WILL CHECK AM LABS AND TX PER PROTOCOL. NO NEED AT CURRENT TIME. WILL CONTINUE TO MONITOR AND CONTINUE WITH PLAN OF CARE.
[2016-07-09 12:00] VITALS: BP 154/102
--- NOTE | 2016-07-09 14:16 | EC ---
PATIENT:MINERVA BEE DATE OF SERVICE: 07/05/16 SEX: M MEDICAL RECORD: [id number] DATE OF : [birth year] LOCATION:D.M2 D.210 AGE OF PATIENT: 56 ADMISSION DATE: 07/05/16 REFERRING PHYSICIAN: INTERPRETING PHYSICIAN: TRI IBRAHIM M.D. ECHOCARDIOGRAM REPORT ECHO CHARGES 4 ECHO COMPLETE CLINICAL DIAGNOSIS: CVA ECHOCARDIOGRAPHIC MEASUREMENTS (adult normal given) AC root (d.<3.7cm) 4.1 LV Septum d (<1.2 cm> 1.8 Valve Excursion 2.1 LV Septum (systole) 2.5 Left Atria (s.<4.0cm> 3.0 LVPW d(<1.2cm) 1.7 RV (d.<2.3cm) 2.9 LVPW (sytole) 2.6 LV diastole(<5.6CM) 4.5 MV E-F(>70mm/sec) LV systole 1.8 LVOT Diameter 2.1 MV exc.(>10mm) Est.ejection fraction (50-75%) Pericardial Effusion N DOPPLER: LVIT A 76.0 E 55.0 LA RVSP 26.1 LVOT 138 AOP1/2T Asc. Ao 138 RVOT 44.0 RA PA 47.0 AV Gradient Peak 7.6 AV Mean 3.7 AV Area 3.4 MV Gradient Peak 4.2 MV Mean 1.8 MV Area COMMENTS: Folder Stitcher Operator: Gertrude RICHEYOE Printed Circuit Board Panels Developer:Imtiaz Ibrahim TAPE# PACS DATE OF SERVICE: 07/06/2016 REFERRING PHYSICIAN: Sandro Thornton MD. INDICATION: CVA. DESCRIPTION: Left ventricle demonstrates left ventricular hypertrophy. No regional wall motion abnormalities are noted. Estimated ejection fraction is 60%. I do not see any mass or thrombus in the left ventricle apex. Mitral valve is structurally normal. There is trivial regurgitation seen. Left atrium ECHOCARDIOGRAM REPORT [id number] MINERVA BEE is normal size. The aortic valve is trileaflet. There is no stenosis or regurgitation seen. Right ventricle is mildly dilated. Tricuspid valve is structurally normal. There is no regurgitation noted. Right atrium is normal size. There is no pericardial effusion seen. IMPRESSION: 1. Left ventricle hypertrophy with preserved ejection fraction of 60%. There is no evidence of any mass or thrombus in the left ventricle apex. 2. Trivial mitral regurgitation. 3. No evidence of atrial septal defect, ventricular septal defect or patent foramen ovale. TRANSINT:[id number] Voice Confirmation ID: [id number] DOCUMENT ID: [id number] TRI IBRAHIM M.D. at 1416 CC: [id number] DICTATION DATE: 07/06/16 1020 MOTORSPORTS TECHNICIAN: 07/06/16 1105 ADM IN [place] [id number] [place] [id number]
--- NOTE | 2016-07-09 14:26 | NUR ---
1400- PAGED DR. JOHNS REQUESTED BY YEIMY BETANCOURT NP TO SEE ABOUT STATUS ON PT RECEIVING STENTS. WILL AWAIT CALLBACK AND CONTINUE TO MONITOR.
[2016-07-09 16:00] VITALS: BP 146/85
--- NOTE | 2016-07-09 17:41 | NUR ---
OT NOTE: PT EDUCATED ON RUE SROM EXS. PT COMPLETED BED MOB WITH MIN A. PT COMPLETED GROOMING WITH SET UP. THANK YOU, ANGELA DAY/Janki
--- NOTE | 2016-07-09 17:45 | NUR ---
PAGED DR. 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 WILL AWAIT CALLBACK AND CONTINUE TO MONITOR.
--- NOTE | 2016-07-09 17:58 | NUR ---
RECEIVED CALLBACK FROM DR. FLEMING. I ASKED DR. FLEMING ( REQUESTED) IF PT WAS GOING TO [facility] THIS WEEK. DR. FLEMING STATED THAT IF IT WAS UP TO HIM HE WOULD HOLD OFF ON GOING TO [facility] UNTIL PT GETS HEPARIN AND ETC. I INFORMED DR. FLEMING THAT PT IS STILL ON OUTPATIENT SCHEDULE (PER [facility]) FOR SATURDAY. DR. FLEMING STATED THAT IS BECAUSE DR. JOHNS DID NOT KNOW PT HAD CVA. WILL RELAY THIS INFORMATION TO YEIMY BETANCOURT NP.
--- NOTE | 2016-07-09 18:00 | NUR ---
PAGED YEIMY BETANCOURT NP REGARDING TALKING TO DR. FLEMING ABOUT PT GOING FOR STENTS THIS WEEK. WILL AWAIT CALLBACK AND CONTINUE TO MONITOR.
--- NOTE | 2016-07-09 18:05 | NUR ---
RECEIVED CALLBACK FROM YEIMY BETANCOURT NP AND RELAYED TO HER THE INFORMATION THAT DR. FLEMING GAVE ME. WILL CONTINUE TO MONITOR.
[2016-07-09 19:00] VITALS: BP 147/93
[2016-07-10 05:36] LABS: BASOPHILS 0.3 % (0-2); EOSINOPHILS 5.8 % (0-7); HEMATOCRIT 45.7 % (42.0-54.0); HEMOGLOBIN 15.2 g/dL (13.5-17.5); IMMATURE GRANULOCYTES 0.2 % (0-5); LYMPHOCYTES 31.9 % (15-50); MCH 31.5 pg (26.0-34.0); MCHC 33.3 g/dL (31.0-37.0); MCV 94.6 fL (80.0-100.0); MEAN PLATELET VOLUME 10.2 fL (7.4-10.4); MONOCYTES 8.3 % (2-11); NEUTROPHILS 53.5 % (40-80); PLATELET COUNT 288 10x3/uL (130-400); RBC 4.83 10x6/uL (4.20-6.10); RDW 12.3 % (11.5-14.5); WBC 9.4 10x3/uL (4.8-10.8)
[2016-07-10 05:38] VITALS: BP 149/96
[2016-07-10 06:38] LABS: ALBUMIN 3.3 g/dL (3.4-5.0); ANION GAP 12.2 mmol/L (8-16); BILIRUBIN - TOTAL 0.4 mg/dL (0.2-1.3); CALCIUM 8.5 mg/dL (8.5-10.1); CARBON DIOXIDE 28.6 mmol/L (21.0-32.0); CREATININE - SERUM 1.2 mg/dL (0.6-1.3); POTASSIUM - SERUM 3.8 mmol/L (3.5-5.1); PROTEIN - SERUM 7.7 g/dL (6.4-8.2)
--- NOTE | 2016-07-10 07:10 | NUR ---
RECEIVED REPORT. ASSUMED CARE OF PATIENT. CALL LIGHT WITHIN REACH. RESTING IN SUPINE POSITION, ALERT/ORIENTED. DENIES NEEDS. NO DISTRESS.
--- NOTE | 2016-07-10 09:50 | NUR ---
[facility] FROM [facility] AT BEDSIDE INTERVIEWING PATIENT AT THIS TIME.
--- NOTE | 2016-07-10 09:52 | NUR ---
Patient Name: MINERVA BEE Encounter No: [id number] : 1960 Primary Insurance: MEDICAID [place] Anticipated DC Date: TO BE DETERMINED Planned Disposition: Home with Home Health External Planned Provider: TO BE DETERMINED DCP follow-up note: CM CALLED [facility], , LEFT MESSAGE ASKING FOR RETURN CALL SEEKING OPTIONS FOR OUTPATIENT THERAPY FOR PT WITH MEDICAID. CM CALLED [facility], SPOKE TO KEM WHO REPORTS THAT PT WILL NEED TO RECEIVE SERVICES AT [facility] [place] OR [facility] TO MEET HIS NEEDS ADEQUATELY; KEM REPORTS THAT MEDICAID DOES NOT COVER OUTPATIENT THERAPY SERVICES. CM CALLED ODILON OF [facility]; ODILON REPORTED THAT DEPENDING ON PT'S NEEDS, SERVICES ARE APPROXIMATELY $100 PER HOUR PER DISCIPLINE OF THERAPY NEEDED AND THEY ARE NOT COVERED BY MEDICAID. CM SPOKE TO [facility], MEDICAID DOES NOT COVER INPATIENT REHAB NOR OUTPATIENT AT [place]; DEPENDING ON THERAPY NEEDED, COSTS COULD RANGE BETWEEN $300 AND $500 PER VISIT. CM SPOKE TO ALEX OF [facility] WHO REPORTED THAT DEPENDING ON PT'S TYPE OF MEDICAID AND IF PT HAS NOT USED ALL OF HIS DAYS, [facility] MAY BE ABLE TO BILL MEDICAID FOR INPATIENT REHAB SERVICES. CM SPOKE TO PT IN ROOM, DISCUSSED OPTIONS. PT GAVE CONSENT FOR [facility] TO RECEIVE REFERRAL FOR POSSIBLE REHAB SERVICES AT THE INPATIENT FACILITY [facility]. CM PROVIDED REFERRAL TO [facility] WHO WILL EVALUATE PT, CHECK INSURANCE AND MEET WITH PT. CM WAITING [facility] ADMISSION DETERMINATION AND TO CHECK WITH MEDICAID TO SEE IF THEY ARE ABLE TO BILL FOR INPATIENT SERVICES. Bismark Davila, CASE MANAGEMENT
[2016-07-10 12:00] VITALS: BP 157/98
--- NOTE | 2016-07-10 14:22 | NUR ---
Patient Name: MINERVA BEE Encounter No: [id number] : 1960 Primary Insurance: MEDICAID [facility] DC Date: 07-10-2016 Planned Disposition: Inpatient Rehab External Planned Provider: [facility] DCP follow-up note: CM RECEIVED CALL FROM ALEX OF [facility], SCREENING COMPLETED AND INSURANCE HAS AUTHORIZED INPATIENT REHAB AT [facility]. [facility] CAN ACCEPT PT TODAY OR TOMORROW. CM NOTIFIED CATHY BETANCOURT, BEDSIDE NURSE AND PT. PT IN AGREEMENT WITH DISCHARGE PLAN TO [facility]. FOR DISCHARGE TO [facility], FAX DISCHARGE INFORMATION TO [phone]; NURSE REPORT TO BE CALLED TO [facility] AT [phone]. [facility] TO ARRANGE VAN TRANSPORT. Bismark Davila, CASE MANAGEMENT
[2016-07-10 16:28] VITALS: BP 147/94
--- NOTE | 2016-07-10 16:48 | NUR ---
OT NOTE: PERFORMED WT BEARING TASKS THROUGH R UE; PRACTICED BED MOB WITH SPV BUT NOT CONTROLLED; EDUCATED ON SROM EXS; PT DEMONSTRATING INCREASED SCAPULAR MOVEMENT TODAY AND INCREASED BICEP MOVEMENT. CONTINUES WITH NO AROM IN R HAND
--- NOTE | 2016-07-10 16:54 | NUR ---
OT NOTE: PT COMPLETED SITTING EOB WITH CGA. PT COMPLETED RUE SROM EXS. PT COMPLETED SIMPLE GROOMING WITH SET UP. THANK YOU, QUOC DAY
--- NOTE | 2016-07-10 17:44 | NUR ---
SPOKE WITH NURSE CASH SPECIALIST AT [facility] (SANDY) AND SANDY STATED THAT IF WOULD BE OKAY IF IT WAS 8 OR 9 OCLOCK TONIGHT BEFORE PATIENT GOT THERE. EXPLIANED TO SANDY THAT WE ARE WAITING ON THE ANALYTICAL LABORATORY TECHNICIAN TO GIVE DISCHARGE ORDERS. [facility] IS AT BEDSIDE AND NOTIFIED OF HOW LATE THEY WILL ACCEPT THE PATIENT.
[2016-07-10 20:00] VITALS: BP 146/66
--- NOTE | 2016-07-10 20:11 | NUR ---
PT AWAKE, ALERT, ORIENTED, DENIES ANY NEEDS. HAD A SHOWER THIS AFTERNOON, TELEMETRY PLACED BACK ON PT. CONTINUE TO MONITOR CLOSELY. BED LOW, CALL LIGHT IN REACH, SIDE RAILS X 2, HOB 20 DEGREES.
[2016-07-11] VITALS: BP 129/92
--- NOTE | 2016-07-11 01:06 | NUR ---
PT LYING IN BED, EYES CLOSED, RESPIRATIONS EVEN AND UNLABORED, EASILY ROUSABLE TO VERBAL STIMULI. CONTINUE TO MONITOR CLOSELY. BED LOW, CALL LIGHT IN REACH, SIDE RAILS X 2, HOB 15 DEGREES.
[2016-07-11 04:00] VITALS: BP 132/96
--- NOTE | 2016-07-11 07:45 | NUR ---
PT SITTING UP IN BED DENIES NEEDS WILL CONT TO MONITOR
--- NOTE | 2016-07-11 07:57 | NUR ---
FAMILY MEMBERS ARE UPSET STATING THAT "CARDIOLOGY HAS NOT CAME TO SEE PT SINCE ADMISSION." I TRIED TO EXPLAIN TO FAMILY THAT THERE ARE NOTES FROM DR FLEMING AND DR MAZARIEGOS.. PT IS ON SCHEDULE FOR OUTPATIENT STENT TODAY. TALKED TO LURDES WATSON, CURRENTLY ON FLOOR AND EXPLAINED TO HER THE SITUATION. SHE STATES IT WILL BE UP TO DR JOHNS WHETHER OR NOT HE NEEDS TO BE STENTED TODAY BEFORE HE DC HOME TO REHAB. I HAVE LET UNIT SEC KNOW I NEED DR JOHNS AND ALSO LURDES IS GOING TO TRY AND GET A HOLD OF DR JOHNS
[2016-07-11 08:10] VITALS: BP 166/91
[2016-07-11 08:15] LABS: MAGNESIUM - SERUM 2.2 mg/dL (1.8-2.4); PHOSPHOROUS 3.6 mg/dL (2.5-4.9); POTASSIUM - SERUM 4.2 mmol/L (3.5-5.1)
--- NOTE | 2016-07-11 11:10 | NUR ---
PAGED DR SCHMIDT AGAIN REGAURDING PT DC STATUS. DR JOHNS HAS CLEARED HIM AND WILL SEE HIM BACK IN [address] SCHMIDT WAS PAGED EARLIER AROUND 0900, WITH NO RETURN CALL. WILL AWAIT HIS CALL OR FOR HIM TO COME TO HOSPITAL
[2016-07-11 12:17] VITALS: BP 157/91
[2016-07-11] MEDS ORDERED: SYNTHROID125 MCG PO (13:05)
--- NOTE | 2016-07-11 13:36 | NUR ---
PER FRAN/CLINICAL LIASON WITH [facility], [facility]AN TRANSPORTATION ARRANGED AND POLICE OFFICER TIME WILL BE 3:00 PM. PATIENT WILL GO TO RM #[id number]. REPORT TO BE CALLED TO [phone].
--- NOTE | 2016-07-11 14:10 | NUR ---
WENT OVER DC INSTRUCTIONS WITH PT PT VERBALIZES UNDERSTANDING. DC PIV IN LEFT ARM WITH CATH TIP INTACT. CALLED REPORT TO NURSE AT [facility]. PT REQUESTED FOR ME TO CALL HIS ERICKA SANTORO AND NOTIFY HER, I DID. WILL AWAIT PT RIDE TO REHAB
--- NOTE | 2016-07-11 15:57 | NUR ---
PT GEM CARVER WAS SUPPOSED TO BE HERE AT 3:00, STILL NOT HERE. CALLED THE REHAB FACILITY, THEY ARE HAVING A DELAY SAID IT WOULD BE ABOUT 45 MINUTES.
--- NOTE | 2016-07-11 16:21 | NUR ---
REHAB CALLED AND SAID THAT IF HIS WANTED TO BRING HIM SHE COULD, OTHERWISE THEY WOULD HAVE TO SEND LIFENET OUT TO RECEIVE PT. NURSING STAFF DOES NOT FEEL COMFORTABLE GETTING PT INTO WIFES CAR AND HER BEING ALONE WITH HIM ON THE WAY TO REHAB ( CAN NOT TRANSFER PT). PT IS COMPLETELY FLACCID ON R SIDE. REHAB SAID THEY WOULD SEND LIFENET. (DUE TO NOT HAVING A BENZENE WORKER AVAILABLE AT THIS TIME)
--- NOTE | 2016-07-11 17:15 | NUR ---
PT CO "HOT FLASH". CHECKED PT BP 147/96 AROUND PT NORMAL RANGE OF BP DURING PT STAY HERE. EXPLAINED TO PT THAT IT COULD VERY WELL BE THE NEW DX OF HYPOTHYROIDISM AND THE NEW MEDICATION MAKING THE HOT FLASH (ONLY NEW MED CHANGE RECENTLY). PT STATES HE FEELS BETTER NOW.
--- NOTE | 2016-07-11 17:27 | NUR ---
LINUX SERVER ADMINISTRATOR FROM REHAB CAME AND PICKED PT UP WHEELED HIM OUT IN WHEELCHAIR
--- NOTE | 2016-07-11 17:57 | NUR ---
OT NOTE: PT COMPLETED EOB DYNAMIC SITTING BALANCE. PT COMPLETED RUE FM AXS. PT COMPLETED BED TO W/C TRANSFER. THANK YOU, ANGELA DAY/Janki
== END 2016-07-11 17:27 | DRG 66 ==
LOC: D.ER 13:11 → D.M2 16:01 → OBSVTIME 16:01 → D.M2 16:01
PROVIDERS: Emergency Medicine; ADMIT Family Medicine Adult Medicine
DX: I63.512 Cerebral infarction due to unspecified occlusion or stenosis of left middle cerebral artery (principal); I10 Essential (primary) hypertension; I25.10 Atherosclerotic heart disease of native coronary artery without angina pectoris; R40.2143 Coma scale, eyes open, spontaneous, at hospital admission; R40.2363 Coma scale, best motor response, obeys commands, at hospital admission; R40.2253 Coma scale, best verbal response, oriented, at hospital admission; Z95.5 Presence of coronary angioplasty implant and graft; Z87.891 Personal history of nicotine dependence

== ENCOUNTER 2018-06-18 22:59 | Inpatient (IN) | payer MEDICAID ==
[~2018-06-18] VITALS: Ht 172.7 cm; Wt 118.2 kg
--- NOTE | ~2018-06-18 | HEMODYNAMI ---
PATIENT:MINERVA BEE MEDICAL RECORD: [id number] : 60 LOCATION:[place] [address] ADMISSION DATE: 06/19/18 Generatedon:06/20/201814:51 Patient name: MINERVA BEE Patient #: [id number] SSN: : 1960 Date of study: 06/20/2018 Page: Of Hemodynamic Procedure Report Patient Data Patient Demographics Procedure consent was obtained First Name: MINERVA Gender: Male Last Name: CRISTAL : 1960 [facility] Initial: JOE Age: 58 year(s) Patient #: [id number] Race: Unknown Additional ID: [id number] Contact details Address: [address] [place] [address] State: [place] City: [place] Zip code: [address] Past Medical History Allergies: No known allergies Admission Admission Data Admission Date: 06/19/2018 Admission Time: 16:19 Room #: [facility] Procedure Procedure Types Cath Procedure Diagnostic Procedure [facility] LH w/Coronaries Peripheral Cath Diagnostic Procedure 4-Vessel Aortic Arch Angiogram Procedure Description Procedure Date Procedure Date: 06/20/2018 Procedure Start Time: 14:33 Procedure End Time: 14:51 Procedure Staff Name Function Willem Ibrahim MD Performing Physician Queta Samano RT Monitor Amalia Fontanez RN Nurse Queta Samano RT Scrub Procedure Data Cath Procedure Fluoroscopy Diagnostic fluoroscopy Total fluoroscopy Time: 2.3 time: 2.3 min min Diagnostic fluoroscopy Total fluoroscopy dose: 305 dose: 305 mGy mGy Contrast Material Contrast Material Type Amount (ml) Isovue 370 89 Entry Location Entry Primary Successful Side Size Upsize Upsize Entry Closure Succes sful Closure Location (Fr) 1 (Fr) 2 (Fr) Remarks Device Remarks Femoral Right 5 Fr Exoseal artery Estimated blood loss: 5 ml Diagnostic catheters Device Type Used For End Catheter Placement MULTIPACK JL 4.0 5Fr Left Coronary catheter Angiography MULTIPACK 3DRC 5Fr Right Coronary catheter Angiography MULTIPACK Pigtail 5 Fr LV Angiography catheter MULTIPACK Pigtail 5 Fr Ascending catheter aortogram Procedure Complications No complications Procedure Medications Medication Administration Route Dosage Oxygen etCO2 Nasal cannula 2 l/min Lidocaine 2% added to field 20 Heparin Flush Bag added to field 2 bags (1000units/500ml NS) 0.9% NaCl I.V. 100 ml/hr Versed I.V. 1 mg Fentanyl I.V. 50 mcg Versed I.V. 1 mg Fentanyl I.V. 50 mcg Versed I.V. 1 mg Fentanyl I.V. 50 mcg Benadryl I.V. 50 mg Hemodynamics Rest Heart Rate: 48 (bpm) Pressure Samples Time Site Value (mmHg) Purpose Heart Use Rate(bpm) 14:41 LV 129/15,26 EDP 91 Gradients Valve Time Site Site Mean SEP/DFP Peak To Heart Use 1 2 (mmHg) (sec/min) Peak Rate (mmHg) (bpm) Aortic 14:41 LV AO 35 Snapshots Pre Cath Intra NCS Post Cath Vital Signs Time Heart Resp SPO2 etCO2 NIBP (mmHg) Rhythm Pain Sedation Rate (ipm) (%) (mmHg) Status Level (bpm) 14:19:54 77 13 94 34.3 148/95(112) NSR 0 (11) 10(A) , No pain 14:24:07 81 14 94 14.9 157/93(103) NSR 0 (11) 10(A) , No pain 14:28:13 86 11 93 37.2 131/96(129) NSR 0 (11) 10(A) , No pain 14:32:13 83 14 93 34.3 123/104(120) NSR 0 (11) 10(A) , No pain 14:36:16 78 12 94 32.1 138/108(122) NSR 0 (11) 9(A) , No pain 14:40:22 88 11 93 35 134/104(119) NSR 0 (11) 9(A) , No pain 14:44:30 86 13 93 35 119/86(103) NSR 0 (11) 10(A) , No pain 14:49:29 89 16 41 Measuring NSR 0 (11) 10(A) , No pain 14:50:43 83 11 20.8 Out of range NSR 0 (11) 10(A) , No pain Medications Time Medication Route Dose Verified Delivered Reason Notes Eff ectiveness by by 14:29:34 Oxygen etCO2 2 Willem Buffie used for Nasal l/min Patrice Fontanez RN procedure cannula 14:29:40 Lidocaine 2% added 20ml Willem Willem for local to vial Patrice Ibrahim MD anesthetic field 14:29:48 Heparin Flush added 2 Willem Willem used for Bag to bags Patrice Ibrahim MD procedure (1000units/500ml field NS) 14:30:03 0.9% NaCl I.V. 100 Willem Buffie Per ml/hr Patrice Fontanez RN physician 14:30:18 Benadryl I.V. 50 mg Willem Buffie used for Patrice Fontanez RN procedure 14:32:10 Versed I.V. 1 mg Willem Buffie for Patrice Fontanez RN sedation 14:32:15 Fentanyl I.V. 50 Willem Buffie for mcg Patrice Fontanez RN sedation 14:35:54 Versed I.V. 1 mg Willem Buffie for Patrice Fontanez RN sedation 14:35:57 Fentanyl I.V. 50 Willem Buffie for mcg Patrice Fontanez RN sedation 14:39:35 Versed I.V. 1 mg Willem Buffie for Patrice Fontanez RN sedation 14:39:40 Fentanyl I.V. 50 Willem Buffie for mcg Patrice Fontanez RN sedation Procedure Log Time Note 14:06:54 Time tracking: Regular hours (M-F 7:00 - 5:00) 14:06:57 Plan of Care:Hemodynamics will remain stable., Cardiac rhythm will remain stable., Comfort level will be maintained., Respiratory function will remain adequate., Patient/ family verbilizes understanding of procedure., Procedure tolerated without complication., Recovers from procedure without complications.. 14:06:59 Amalia Fontanez RN sent for patient. Start room use. 14:10:36 Patient received from Med/Surg to CCL 3 Alert and oriented. Tansferred to table in Supine position. 14:10:37 Warm blankets applied, and chalino hugger turned on for patient comfort. 14:10:37 Correct patient and procedure confirmed by team. 14:10:38 Signed procedure consent form obtained from patient. 14:10:39 ECG and BP/O2 sat monitors applied to patient. 14:10:41 Full Disclosure recording started 14:18:54 Vital chart was started 14:18:57 Rhythm: sinus rhythm 14:19:14 H&P Date Dictated: 06/19/2018 Within 30 days and on chart.. 14:19:15 Pre-procedure instructions explained to patient. 14:19:16 Pre-op teaching completed and patient verbalized understanding. 14:19:17 Family in waiting room. 14:19:23 Patient NPO since Midnight. 14:19:28 Patient allergic to No known allergies 14:19:30 Is the patient allergic to Iodine/contrast media? No. 14:19:32 Is patient on blood thinner?Yes 14:19:52 PLAVIX LAST DOSE 06/18/18 14:19:54 Patient diabetic? No. 14:19:58 Previous problem with sedation/anesthesia? No ? 14:19:59 Snore? Yes 14:20:00 Sleep apnea? No 14:20:01 Deviated septum? No 14:20:02 Opens mouth fully? Yes 14:20:02 Sticks out tongue? Yes 14:20:09 Airway obstruction? No ? 14:20:14 Dentures? No ? 14:20:19 Pre procedure: right dorsailis pedis pulse 2+ Normal; easily identifiable; not easily obliterated 14:20:22 Patient pain scale 0/10 ?. 14:20:47 IV patent on arrival in left forearm with 0.9% NaCl at [facility]. 14:20:49 Lab results completed and on chart. 14:20:52 Right groin area was prepped with chlora-prep and draped in sterile fashion 14:20:53 Alarms reviewed by R. N. 14:20:53 Sharps counted by scrub and verified by R.N. 14:20:56 Use device set Femoral Dx 14:20:57 ACIST Syringe (70236) opened to sterile field. 14:20:58 Bag Decanter (2002S) opened to sterile field. 14:20:58 Medline Cath Pack ([id number]) opened to sterile field. 14:20:59 DIAGNOSTIC WIRE .035 260cm J wire (320850) opened to sterile field. 14:21:00 ACIST Hand Control (13154) opened to sterile field. 14:21:00 ACIST Manifold (38648) opened to sterile field. 14:21:01 DIAGNOSTIC Multipack 5Fr catheter set ([id number]) opened to sterile field. 14:21:02 Tegaderm 4 x 4 (1626W) opened to sterile field. 14:21:02 SHEATH 5FR Anderson (JVE081) opened to sterile field. 14:21:42 IV Extension Set opened to sterile field. 14:29:34 Oxygen 2 l/min etCO2 Nasal cannula was administered by Amalia Fontanez RN; used for procedure; 14:29:40 Lidocaine 2% 20ml vial added to field was administered by Willem Ibrahim MD; for local anesthetic; 14:29:48 Heparin Flush Bag (1000units/500ml NS) 2 bags added to field was administered by Willem Ibrahim MD; used for procedure; 14:30:03 0.9% NaCl 100 ml/hr I.V. was administered by Amalia Fontanez RN; Per physician; 14:30:18 Benadryl 50 mg I.V. was administered by Amalia Fontanez RN; used for procedure; 14:31:54 Final Timeout: patient, procedure, and site verified with staff and physician. All members of the team are in agreement. 14:31:55 Right groin site verified by team. 14:31:59 Maximum allowable Isovue 370 dose 300ml. Physician notified. (300ml for normal creatinines. For patients with creatinine of 1.7 or higher multiply weight(kg) x 5 divided by creatinine.) 14:32:02 Fire Safety Assessment: A--An alcohol-based skin anteseptic being used preoperatively., C--Open oxygen or nitrous oxide is being used., D--An ESU, laser, or fiber-optic light is being used. 14:32:05 Physical assessment completed. ASA score P 2 - A patient with mild systemic disease as per Willem Ibrahim MD. 14:32:08 Sedation plan: IV Moderate Sedation Medication:Versed, Fentanyl 14:32:10 Versed 1 mg I.V. was administered by Amalia Fontanez RN; for sedation; 14:32:14 Procedure started. 14:32:15 Fentanyl 50 mcg I.V. was administered by Amalia Fontanez RN; for sedation; 14:32:24 Baseline sample Acquired. 14:33:01 Local anesthetic to right femoral artery with Lidocaine 2% by Willem Ibrahim MD.INITIAL ACCESS ONLY 14:33:04 Zero performed for pressure channel P1 14:34:41 A 5 Fr sheath was inserted into the Right Femoral artery 14:35:34 A MULTIPACK JL 4.0 5Fr catheter was advanced over the wire and used for Left Coronary Angiography. 14:35:54 Versed 1 mg I.V. was administered by Amalia Fontanez RN; for sedation; 14:35:57 Fentanyl 50 mcg I.V. was administered by Amalia Fontanez RN; for sedation; 14:37:48 Catheter removed. 14:37:53 A MULTIPACK 3DRC 5Fr catheter was advanced over the wire and used for Right Coronary Angiography. 14:39:35 Versed 1 mg I.V. was administered by Amalia Fontanez RN; for sedation; 14:39:40 Fentanyl 50 mcg I.V. was administered by Amalia Fontanez RN; for sedation; 14:40:26 Catheter removed. 14:40:44 A MULTIPACK Pigtail 5 Fr catheter was advanced over the wire and used for LV Angiography. 14:41:25 LV gram done using WILKINS 14:41:26 LV hemodynamics recorded. 14:41:29 Injector settings: Ml/sec: 10, Volume: 20, 14:41:36 EF : 60 % 14:42:27 A MULTIPACK Pigtail 5 Fr catheter was advanced over the wire and used for Ascending aortogram. 14:42:48 Catheter removed. 14:44:20 Sheath removed intact; hemostasis achieved with Exoseal to the Right Femoral artery. 14:44:23 Procedure ended.(Physican Out) 14:44:42 Fluoroscopy time 02.30 minutes. 14:44:47 Flurop Dose total: 305 14:44:47 Fluoroscopy dose: 305 mGy 14:44:50 Contrast amount:Isovue 370 89ml. 14:44:52 Sharps counted by scrub and verified by R.N. 14:44:53 Insertion/operative site no bleeding no hematoma. 14:44:55 Post-op/insertion site Right Femoral artery dressed using a 4 x 4 and Tegaderm. 14:44:58 Post right femoral artery:stable, clean and dry 14:45:00 Post Procedure Pulses reassessed and unchanged 14:45:04 Post-procedure physical assessment completed. ASA score P 2 - A patient with mild systemic disease as per Willem Ibrahim MD. 14:45:07 Post procedure rhythm: unchanged. 14:45:10 Estimated blood loss: 5 ml 14:45:12 Post procedure instruction explained to patient.Patient verbalizes understanding. 14:45:14 Patient needs reinforcement of post procedure teaching. 14:45:30 Procedure type changed to Cath procedure, Diagnostic procedure, LHC, LHC w/Coronaries, Peripheral Cath Diagnostic Procedure, 4-Vessel, Aortic Arch Angiogram 14:45:39 Procedure Complication : No complications 14:45:41 See physician's report for complete and final results. 14:46:09 EXOSEAL 5Fr (EX500) opened to sterile field. 14:46:58 Procedure and supply charges have been captured, reviewed, submitted and are correct. 14:50:52 Vital chart was stopped 14:50:54 Report given to PCU. 14:50:58 Patient transfered to PCU with Bed. 14:51:05 Procedure ended. 14:51:05 Full Disclosure recording stopped 14:51:10 End room use (Document Last) Device Usage Item Name Manufacture Quantity Catalog Hospital Part Current Minimal L ot# / Number Charge Number Stock Stock Serial# Code ACIST Acist 1 48688 347254 483005 586296 20 Syringe Medical (19222) Systems Inc Bag Microtek 1 2001S 552979 09112 533412 5 Decanter Medical Inc. () Medline Medline 1 [id number] 132380 29776 953953 5 Cath Pack ([id number]) DIAGNOSTIC St Yunior 1 915955 944101 532196 244078 30 WIRE .035 260cm J wire (161801) ACIST Hand Acist 1 25599 271226 357296 729888 5 Control Medical (69401) Systems Inc ACIST Acist 1 79853 614199 605346 517120 5 Manifold Medical (91045) Systems Inc DIAGNOSTIC Cardinal 1 [id number] 937391 79295 447901 30 Multipack Health 5Fr catheter set (VG0285) Tegaderm 4 3M 1 1626W 507986 929729 904950 5 x 4 (1626W) SHEATH 5FR Terumo 1 RZD756 003583 087063 375967 5 Anderson (KCC173) IV Hospira 1 84253-00 364503 04579 489342 5 Extension Set MULTIPACK Cardinal 1 870617 5 JL 4.0 5Fr Health catheter MULTIPACK Cardinal 1 511033 5 3DRC 5Fr Health catheter MULTIPACK Cardinal 1 179369 5 Pigtail 5 Health Fr catheter EXOSEAL 5Fr Cardinal 1 EX500 370187 192414 651420 10 (EX500) Health Signature Audit [place] Stage Time Signature Unsigned Intra-Procedure 06/20/2018 Queta 2:51:28 PM Counts RT(R) Signatures Monitor : Queta Signature : Counts RT Date : Time : [address] [address]
[~2018-06-18 22:59] MED LIST changes: +BAYER CHEWABLE81 MG PO; +SYNTHROID125 MCG PO
[2018-06-18] MEDS ORDERED: COREG6.25 MG PO (23:16)
[2018-06-18] MEDS ORDERED: LISINOPRIL20 MG PO (23:16)
[2018-06-18] MEDS ORDERED: NORVASC5 MG PO (23:16)
[2018-06-18] MEDS ORDERED: LIPITOR80 MG PO (23:17)
[2018-06-18 23:52] LABS: BASOPHILS 0.5 % (0-2); EOSINOPHILS 6.4 % (0-7); HEMOGLOBIN 16.5 g/dL (13.5-17.5); IMMATURE GRANULOCYTES 0.1 % (0-5); LYMPHOCYTES 28.8 % (15-50); MCH 32.4 pg (26.0-34.0); MCHC 35.9 g/dL (31.0-37.0); MCV 90.2 fL (80.0-100.0); MEAN PLATELET VOLUME 10.6 fL (7.4-10.4); MONOCYTES 9.7 % (2-11); NEUTROPHILS 54.5 % (40-80); PLATELET COUNT 246 10x3/uL (130-400); RDW 12.1 % (11.5-14.5); WBC 9.8 10x3/uL (4.8-10.8)
[2018-06-19 00:06] LABS: ALBUMIN 4.2 g/dL (3.4-5.0); ANION GAP 12.9 mmol/L (8-16); BILIRUBIN - TOTAL 0.3 mg/dL (0.2-1.3); CALCIUM 8.9 mg/dL (8.5-10.1); CREATININE - SERUM 1.4 mg/dL (0.6-1.3); POTASSIUM - SERUM 3.9 mmol/L (3.5-5.1); PROTEIN - SERUM 8.5 g/dL (6.4-8.2)
[2018-06-19 01:52] VITALS: BP 144/94; Ht 172.7 cm; Wt 118.2 kg
[2018-06-19 04:00] VITALS: BP 130/81
[2018-06-19 08:35] VITALS: BP 145/94
[2018-06-19 12:37] VITALS: BP 130/90
[2018-06-19 17:05] LABS: PLT FUNCT.(P2Y12) PLAVIX 186 PRU (194-418)
[2018-06-19 17:47] VITALS: BP 142/90
[2018-06-19 20:00] VITALS: BP 126/78
[2018-06-20 04:00] VITALS: BP 121/79
[2018-06-20 06:35] LABS: BASOPHILS 0.4 % (0-2); EOSINOPHILS 4.6 % (0-7); HEMATOCRIT 43.7 % (42.0-54.0); HEMOGLOBIN 15.2 g/dL (13.5-17.5); IMMATURE GRANULOCYTES 0.1 % (0-5); LYMPHOCYTES 34.8 % (15-50); MCH 31.7 pg (26.0-34.0); MCHC 34.8 g/dL (31.0-37.0); MEAN PLATELET VOLUME 10.7 fL (7.4-10.4); MONOCYTES 11.2 % (2-11); NEUTROPHILS 48.9 % (40-80); PLATELET COUNT 228 10x3/uL (130-400); RDW 12.4 % (11.5-14.5); WBC 8.2 10x3/uL (4.8-10.8)
[2018-06-20 06:40] LABS: ALBUMIN 3.8 g/dL (3.4-5.0); ANION GAP 11.7 mmol/L (8-16); BILIRUBIN - TOTAL 0.49 mg/dL (0.2-1.3); CALCIUM 8.7 mg/dL (8.5-10.1); CARBON DIOXIDE 29.5 mmol/L (21.0-32.0); CREATININE - SERUM 1.4 mg/dL (0.6-1.3); POTASSIUM - SERUM 4.2 mmol/L (3.5-5.1); PROTEIN - SERUM 7.3 g/dL (6.4-8.2)
[2018-06-20 07:59] VITALS: BP 206/183
[2018-06-20 09:30] VITALS: BP 116/74
[2018-06-20 12:59] VITALS: BP 115/65
[2018-06-20 15:24] VITALS: BP 106/57
[2018-06-20 20:58] VITALS: BP 99/44
[2018-06-21 00:56] VITALS: BP 117/70
[2018-06-21 04:00] VITALS: BP 111/84
[2018-06-21 04:58] LABS: BASOPHILS 0.3 % (0-2); EOSINOPHILS 3.4 % (0-7); HEMATOCRIT 43.4 % (42.0-54.0); HEMOGLOBIN 15.2 g/dL (13.5-17.5); IMMATURE GRANULOCYTES 0.3 % (0-5); LYMPHOCYTES 27.3 % (15-50); MCH 31.9 pg (26.0-34.0); MEAN PLATELET VOLUME 10.6 fL (7.4-10.4); MONOCYTES 9.3 % (2-11); NEUTROPHILS 59.4 % (40-80); PLATELET COUNT 212 10x3/uL (130-400); RBC 4.77 10x6/uL (4.20-6.10); RDW 12.4 % (11.5-14.5)
[2018-06-21 04:59] LABS: WBC 10.4 10x3/uL (4.8-10.8)
[2018-06-21 05:19] LABS: ALBUMIN 3.5 g/dL (3.4-5.0); ANION GAP 12.4 mmol/L (8-16); BILIRUBIN - TOTAL 0.43 mg/dL (0.2-1.3); CALCIUM 8.2 mg/dL (8.5-10.1); CARBON DIOXIDE 26.4 mmol/L (21.0-32.0); CREATININE - SERUM 1.2 mg/dL (0.6-1.3); POTASSIUM - SERUM 3.8 mmol/L (3.5-5.1); PROTEIN - SERUM 7.1 g/dL (6.4-8.2)
[2018-06-21 09:12] VITALS: BP 133/88
[2018-06-21 12:54] VITALS: BP 111/77
--- NOTE | 2018-06-21 16:53 | MORECARE ---
CASE MANAGEMENT DISCHARGE SUMMARY PATIENT: MINERVA BEE UNIT: [id number] ADM DATE: 06/19/18 AGE: 58 : 60 SEX: M ROOM/BED: D.2114 AUTHOR: CHRISTIANA GANT PHYSICIAN: REFERRING PHYSICIAN: ISIDRA COOMBS DO DATE OF SERVICE: 06/21/18 Discharge Plan Patient Name[facility] MIN[facility]A BEE [facility] [facility] 1960 Planned Disposition: Home Anticipated Discharge Date: 06/21/18 Discharge Date: 06/21/2018 Expected LOS: 2 Initial Reviewer: [email or web address] Initial Review Date: 06/19/2018 Generated: 06/21/18 5:53 pm Patient Name: MINERVA BEE Page 16439 at 1653 All edits/amendments must be made on the electronic document DICTATION DATE: 06/21/181651 PRIVATE DUTY RN: SAV 06/21/181651 RPT#: [id number] DC DATE:06/21/18 STATUS: DIS IN [facility] [address] [place] [address] END OF REPORT
--- NOTE | 2018-06-21 17:00 | MORECARE ---
CASE MANAGEMENT DISCHARGE SUMMARY PATIENT: MINERVA BEE UNIT: [id number] ADM DATE: 06/19/18 AGE: 58 : 60 SEX: M ROOM/BED: D.2114 AUTHOR: CHRISTIANA GANT PHYSICIAN: REFERRING PHYSICIAN: ISIDRA COOMBS DO DATE OF SERVICE: 06/21/18 Discharge Plan Patient Name: MINERVA BEE Facility: [facility]:[place] : 1960 Planned Disposition: Home Anticipated Discharge Date: 06/21/18 Discharge Date: 06/21/2018 Expected LOS: 2 Initial Reviewer: [email or web address] Initial Review Date: 06/19/2018 Generated: 06/21/18 6:00 pm DCPIA - Discharge Planning Initial Assessment Updated by [email or web address]: Theodora Mcqueen on 06/21/18 4:59 pm * Is the patient Alert and Oriented? Yes * How many steps to enter\\exit or inside your home? 2 W/ RAIL * PCP DR COOMBS * Pharmacy [facility] [place] [place] * Preadmission Environment Home with Family * ADLs Partial Dependent * Partial ADLs (Assistance needed) Dressing * Equipment Cane * Other Equipment DENIES ANY OTHER DME UTILIZES HIS SISTER'S ROLL AROUND" CHAIR SOME TIMES * List name and contact numbers for known caregivers / representatives who currently or will assist patient after discharge: YVAN VILLEGAS- [phone] * Verbal permission to speak to the caregivers and representatives has been obtained from the patient. No * Community resources currently utilized Meals on Wheels * Please name any agencies selected above. MOM'S MEALS ARE DELIVERED EVERY 2 WEEKS * Additional services required to return to the preadmission environment? No * Can the patient safely return to the preadmission environment? Yes * Has this patient been hospitalized within the prior 30 days at any hospital? No Last DP export: 06/21/18 3:53 p Patient Name: MINERVA BEE Page 25456 at 1700 All edits/amendments must be made on the electronic document DICTATION DATE: 06/21/181658 CONTINUOUS IMPROVEMENT ENGINEER: SAV 06/21/181658 RPT#: [id number] DC DATE:06/21/18 STATUS: DIS IN [facility] [address] [place] [address] END OF REPORT
--- NOTE | 2018-06-21 17:20 | MORECARE ---
CASE MANAGEMENT DISCHARGE SUMMARY PATIENT: MINERVA BEE UNIT: [id number] ADM DATE: 06/19/18 AGE: 58 : 60 SEX: M ROOM/BED: D.9461 AUTHOR: ALFREDA,DOC PHYSICIAN: REFERRING PHYSICIAN: ISIDRA COOMBS DO DATE OF SERVICE: 06/21/18 Discharge Plan Patient Name: MINERVA BEE [facility] [facility] 1960 Planned Disposition: Home Anticipated Discharge Date: 06/21/18 Discharge Date: 06/21/2018 Expected LOS: 2 Initial Reviewer: [email or web address] Initial Review Date: 06/19/2018 Generated: 06/21/18 6:20 pm Comments DCP- Discharge Planning Updated by [email or web address]: Theodora Mcqueen on 06/21/18 4:[address] Patient Name: MINERVA BEE Admission Status: ER Accout number: [id number] Admission Date: 06-19-2018 : 1960 Admission Diagnosis: Attending: ISIDRA COOMBS Current LOS: 2 Anticipated DC Date: 06-21-2018 Planned Disposition: Home Primary Insurance: MEDICAID [place] Discharge Planning Comments: LATE ENTRY 1215 CM MET WITH THE PATIENT IN HIS ROOM. HE WAS ALERT AND ORIENTED X4. STATES HE IS PLANNING TO RETURN TO HOME AT DISCHARGE TODAY. CM EXPLAINED ROLE AND DISCUSSED OPTIONS FOR CARE AT DISCHARGE. PATIENT DENIES ANY NEEDS. STATES HE LIVES WITH HIS SISTER WHO HELPS HIM IF NEEDED. HE RECEIVES MOM'S MEALS. THEY ARE DELIVERED [id number]. HE JUST RECEIVED A SHIPMENT. DENIES ANY HOME HEALTH OR COMMUNITY SERVICES. PCP- [facility] COOMBS [facility]- [facility]- [facility] [place]- HAS A CANE. HE USES HIS SISTER'S "ROLL AROUND CHAIR" OCCASIONALLY. HIS SON, KRISTEL, WILL PROVIDE TRANSPORTATION TO HOME. HAs 2 steps w/ a rail to enter his home. NO RECENT HOSPITALIZATION. DENIES ANY NEEDS. Internal Combustion Engine Subassembler: Theodora Mcqueen DCPIA - Discharge Planning Initial Assessment Updated by [email or web address]: Theodora Mcqueen on 06/21/18 4:59 pm * Is the patient Alert and Oriented? Yes * How many steps to enter\\exit or inside your home? 2 W/ RAIL * PCP DR COOMBS * [facility] [place] * Preadmission Environment Home with Family * ADLs Partial Dependent * Partial ADLs (Assistance needed) Dressing * Equipment Cane * Other Equipment DENIES ANY OTHER DME UTILIZES HIS SISTER'S ROLL AROUND" CHAIR SOME TIMES * List name and contact numbers for known caregivers / representatives who currently or will assist patient after discharge: YVAN VILLEGAS- [phone] * Verbal permission to speak to the caregivers and representatives has been obtained from the patient. No * Community resources currently utilized Meals on Wheels * Please name any agencies selected above. MOM'S MEALS ARE DELIVERED EVERY 2 WEEKS * Additional services required to return to the preadmission environment? No * Can the patient safely return to the preadmission environment? Yes * Has this patient been hospitalized within the prior 30 days at any hospital? No Last DP export: 06/21/18 4:00 p Patient Name: MINERVA BEE Page 61030 at 1720 All edits/amendments must be made on the electronic document DICTATION DATE: 06/21/181719 PLAYGROUND SUPERVISOR: SAV 06/21/18 172 RPT#: [id number] DC DATE:06/21/18 STATUS: DIS IN [facility] [address] [place] [address] END OF REPORT
--- NOTE | 2018-06-23 08:47 | MORECARE ---
CASE MANAGEMENT DISCHARGE SUMMARY PATIENT: MINERVA BEE UNIT: [id number] ADM DATE: 06/19/18 AGE: 58 : 60 SEX: M ROOM/BED: D.9056 AUTHOR: ALFREDADOC PHYSICIAN: REFERRING PHYSICIAN: ISIDRA COOMBS DO DATE OF SERVICE: 06/23/18 Discharge Plan Patient Name: MINERVA BEE [facility] [facility] 1960 Planned Disposition: Home Anticipated Discharge Date: 06/21/18 Discharge Date: 06/21/2018 Expected LOS: 2 Initial Reviewer: [email or web address] Initial Review Date: 06/19/2018 Generated: 06/23/18 9:47 am Comments DCP- Discharge Planning Updated by [email or web address]: Theodora Mcqueen on 06/21/18 4:[address] Patient Name: MINERVA BEE Admission Status: ER Accout number: [id number] Admission Date: 06-19-2018 : 1960 Admission Diagnosis: Attending: ISIDRA COOMBS Current LOS: 2 Anticipated DC Date: 06-21-2018 Planned Disposition: Home Primary Insurance: MEDICAID [place] Discharge Planning Comments: LATE ENTRY 1215 CM MET WITH THE PATIENT IN HIS ROOM. HE WAS ALERT AND ORIENTED X4. STATES HE IS PLANNING TO RETURN TO HOME AT DISCHARGE TODAY. CM EXPLAINED ROLE AND DISCUSSED OPTIONS FOR CARE AT DISCHARGE. PATIENT DENIES ANY NEEDS. STATES HE LIVES WITH HIS SISTER WHO HELPS HIM IF NEEDED. HE RECEIVES MOM'S MEALS. THEY ARE DELIVERED [id number]. HE JUST RECEIVED A SHIPMENT. DENIES ANY HOME HEALTH OR COMMUNITY SERVICES. PCP- DR COOMBS [facility]ARMACY- [facility]- [facility] [place]. HE USES HIS SISTER'S "ROLL AROUND CHAIR" OCCASIONALLY. HIS SON, KRISTEL, WILL PROVIDE TRANSPORTATION TO HOME. HAs 2 steps w/ a rail to enter his home. NO RECENT HOSPITALIZATION. DENIES ANY NEEDS. Membership Coordinator: Theodora Mcqueen DCPIA - Discharge Planning Initial Assessment Updated by [email or web address]: Theodora Mcqueen on 06/21/18 4:59 pm * Is the patient Alert and Oriented? Yes * How many steps to enter\\exit or inside your home? 2 W/ RAIL * PCP DR COOMBS * [facility] [place] * Preadmission Environment Home with Family * ADLs Partial Dependent * Partial ADLs (Assistance needed) Dressing * Equipment Cane * Other Equipment DENIES ANY OTHER DME UTILIZES HIS SISTER'S ROLL AROUND" CHAIR SOME TIMES * List name and contact numbers for known caregivers / representatives who currently or will assist patient after discharge: YVAN VILLEGAS- [phone] * Verbal permission to speak to the caregivers and representatives has been obtained from the patient. No * Community resources currently utilized Meals on Wheels * Please name any agencies selected above. MOM'S MEALS ARE DELIVERED EVERY 2 WEEKS * Additional services required to return to the preadmission environment? No * Can the patient safely return to the preadmission environment? Yes * Has this patient been hospitalized within the prior 30 days at any hospital? No Last DP export: 06/21/18 4:20 p Patient Name: MINERVA BEE Page 98607 at 0847 All edits/amendments must be made on the electronic document DICTATION DATE: 06/23/1847 GAMING DEPARTMENT HEAD: SAV 06/23/18 08 RPT#: [id number] DC DATE:06/21/18 STATUS: DIS IN [facility] [address] [facility] [place] [address] END OF REPORT
== END 2018-06-21 15:15 | disposition home or self-care (01) | DRG 68 ==
LOC: D.ER 22:59 → OBSVTIME 06-19 00:29 → D.MS 06-19 00:29 → D.M2 06-20 14:43
PROVIDERS: Emergency Medicine; Family Medicine; Internal Medicine Cardiovascular Disease; Thoracic Surgery (Cardiothoracic Vascular Surgery); ADMIT Family Medicine; ATTEND Family Medicine
PROC: B2151ZZ Fluoroscopy of Left Heart using Low Osmolar Contrast (ICD-10-PCS; 2018-06-20)
PROC: B3101ZZ Fluoroscopy of Thoracic Aorta using Low Osmolar Contrast (ICD-10-PCS; 2018-06-20)
PROC: 4A023N7 Measurement of Cardiac Sampling and Pressure, Left Heart, Percutaneous Approach (ICD-10-PCS; 2018-06-20)
PROC: B2111ZZ Fluoroscopy of Multiple Coronary Arteries using Low Osmolar Contrast (ICD-10-PCS; principal; 2018-06-20 14:06)
DX: I65.22 Occlusion and stenosis of left carotid artery (principal); I69.351 Hemiplegia and hemiparesis following cerebral infarction affecting right dominant side; I10 Essential (primary) hypertension; M81.0 Age-related osteoporosis without current pathological fracture; E03.9 Hypothyroidism, unspecified; I25.10 Atherosclerotic heart disease of native coronary artery without angina pectoris; Z87.891 Personal history of nicotine dependence; Z72.89 Other problems related to lifestyle